=== PATIENT | female | born 1950 | race Caucasian/White ===

== ENCOUNTER 2020-11-27 10:09 | Day surgery (SDC) | payer MEDICARE, OTHER ==
[2020-11-26 08:22] VITALS: BMI 27.1
[~2020-11-27 10:09] MED LIST: ATROPINE OPHTH SOLN 1% 5ML BTL BOTH EYES PRN; LACTATED RINGERS 1,000 ML IV SCH; MOXIFLOXACIN HCL 0.5% DROPS 3 ML BTL OP PRN; TETRACAINE 0.5% OPHTH (PF) DROPS 4 ML BTL OP PRN; TIMOLOL 0.5% OPHTH DROPS 5 ML BTL OP PRN
[2020-11-27 11:24] VITALS: TEMP 98.8
[2020-11-27] MEDS: PHENYLEPHRINE 2.5% OPHTH DRP 2ML OP PRN ×3 (11:27→11:39)
[2020-11-27] MEDS: CYCLOPENTOLATE 1% OPHTH SOLN 2 ML BTL OP PRN ×3 (11:30→11:40)
[2020-11-27] MEDS ORDERED: MIDAZOLAM 2 MG/2 ML VIAL ONE (12:21)
[2020-11-27] MEDS ORDERED: fentaNYL (PF) 50 MCG/ML 2 ML AMP ONE (12:21)
[2020-11-27] MEDS ORDERED: HYALURONATE SODIUM INTRAOCULAR 1 EACH SYRINGE (12MG/ML) INTRAOCULA ONE (12:22)
[2020-11-27] MEDS ORDERED: LIDOCAINE 1% (PF) 10MG/ML VIAL SQ ONE (12:22)
[2020-11-27] MEDS ORDERED: BALANCED SALT IRRIG SOLN COMB2 15 ML IRRIG.SOLN INTRAOCULA ONE (12:22)
[2020-11-27] MEDS ORDERED: EPINEPHrine (PF) 0.3 ML in BALANCED SALT IRRIG SOLN COMB2 500 ML IRRIGATION ONE (12:34)
--- NOTE | 2020-11-27 12:47 | P.OP ---
Date of Procedure: 11/27/20 Preoperative Diagnosis: NS & CS & PSC Postoperative Diagnosis: same Procedure(s) Performed: PIOL, OS Implants: [id number] Anesthesia: MAC Surgeon: Dyllan Zhu Pathology: none sent Condition: stable Disposition: same day Indications for Procedure: blurry vision Operative Findings: no complications
[2020-11-27 13:06] VITALS: BP 123/79; PULSE 55; RESP 18
--- NOTE | 2020-11-27 23:31 | OP ---
OPERATIVE REPORT DATE OF SURGERY: 11/27/2020 PROCEDURE: Phacoemulsification of cataract and intraocular lens implant of the left eye. PREOPERATIVE DIAGNOSIS: Nuclear sclerosis, cortical sclerosis, posterior subcapsular cataract. POSTOPERATIVE DIAGNOSIS: Nuclear sclerosis, cortical sclerosis, posterior subcapsular cataract. ESTIMATED BLOOD LOSS: Zero. SPECIMEN TAKEN: None. NARRATIVE: After obtaining the appropriate consent, the patient was brought to the operating room, where the patient was placed under cardiac monitoring and prepped and draped in the usual sterile manner. At the 5 o'clock position a 15-degree super sharp blade was used to create a paracentesis followed by instillation of 1% Xylocaine MPF 50:50 mix with BSS into the anterior chamber. This was followed by Amvisc to stabilize the anterior chamber. At the 3 o'clock position a self-sealing corneal flap incision was created using 2.8 mm panfilo keratome. A cystotome was used to initiate a continuous tear capsulorrhexis which was completed with the Utrata forceps. A Binkhorst cannula was used to hydrodissect the lens nucleus followed by hydrodelineation. Phacoemulsification of the lens was performed utilizing phaco chop in 9.73 seconds at 11% power. The remaining cortical material was removed using the irrigation and aspiration mode followed by additional 1% Xylocaine MPF into the anterior chamber followed by Amvisc to stabilize the capsular bag. A Bausch [employer] Lomb MX 60E 23.0 diopters posterior chamber lens was placed into the capsular bag without difficulty. The remaining viscoelastic material was removed from the anterior chamber with the irrigation/aspiration. Balanced salt solution was used to normalize the intraocular pressure. The incision was checked for watertight integrity. The patient then received two drops of 0.5% Timolol followed by two drops Vigamox and was lightly patched and shielded in the usual manner. There were no complications from the procedure. The patient tolerated the procedure well and was returned to Recovery in good condition. MMODL / IJN: [id number] /
== END 2020-11-27 13:28 | disposition home or self-care (01) ==
LOC: OR 10:09
PROVIDERS: ATTEND Ophthalmology
DX: H25.12 Age-related nuclear cataract, left eye (principal); H25.012 Cortical age-related cataract, left eye; H25.042 Posterior subcapsular polar age-related cataract, left eye; H31.002 Unspecified chorioretinal scars, left eye; Z96.1 Presence of intraocular lens; Z87.891 Personal history of nicotine dependence; Z87.442 Personal history of urinary calculi; Z79.899 Other long term (current) drug therapy; Z91.030 Bee allergy status
CPT/HCPCS: 66984; C1780; J2250; J0171; J3010; J2001

== ENCOUNTER 2024-06-24 22:59 | Inpatient (IN) | payer MEDICARE, OTHER ==
[2024-06-24 23:40] LABS: Basophils # (A) 0.1 k/uL (0-0.2); Basophils % (A) 1 %; Eosinophils # (A) 0.5 k/uL (0-0.7); Eosinophils % (A) 4 %; HCT 45.3 % (34.0-46.0); HGB 15.3 gm/dL (11.4-16.0); Lymphocytes # (A) 1.4 k/uL (1.0-4.8); Lymphocytes % (A) 11 %; MCH 29.9 pg (25.0-35.0); MCHC 33.7 g/dL (31.0-37.0); Mean Platelet Volume 10.2; Monocytes # (A) 0.7 k/uL (0-1.0); Monocytes % (A) 6 %; Neutrophils # (A) 9.9 k/uL (1.3-7.7); Neutrophils % (A) 78 %; Platelet Count 280 k/uL (150-450); RBC 5.09 m/uL (3.80-5.40); RDW 13.3 % (11.5-15.5); WBC 12.7 k/uL (3.8-10.6)
--- NOTE | 2024-06-24 23:54 | ED ---
Abdominal Pain HPI - General Chief Complaint: Abdominal Pain Stated Complaint: Abdominal pain Source: patient Mode of arrival: ambulatory Limitations: no limitations - History of Present Illness Initial Comments: 74-year-old female presenting chief complaint of abdominal pain. Pain has been ongoing 06/21. She has a colicky pain in the lower abdomen. Patient has history of diverticulitis, she was placed on Augmentin by urgent care. It has been a few days and she does note improvement in her pain but no resolution. No nausea, vomiting, or diarrhea. No hematochezia or melena. No fevers or chills. No dysuria or hematuria. - Related Data Home Medications Medication Instructions Recorded Confirmed Cholecalciferol [Vitamin D3 (25 75 mcg PO DAILY 11/25/20 11/27/20 Mcg = 1000 Iu)] Allergies Allergy/AdvReac Type Severity Reaction Status Date / Time bee venom protein (honey bee) Allergy Rash/Hives Verified 11/27/20 11:24 Review of Systems ROS Statement: Those systems with pertinent positive or pertinent negative responses have been documented in the HPI. ROS Other: All systems not noted in ROS Statement are negative. Past Medical History Additional Past Medical History / Comment(s): left cataract,hx kidney stones History of Any Multi-Drug Resistant Organisms: None Reported Additional Past Surgical History / Comment(s): rt cataract,kidney removed Past Anesthesia/Blood Transfusion Reactions: No Reported Reaction Past Psychological History: No Psychological Hx Reported Smoking Status: Former smoker - Past Family History Mother Family Medical History: No Reported History Father Family Medical History: Prostate Disorder Additional Family Medical History / Comment(s): emphysema General Exam - General Exam Comments Initial Comments: Visual Physical Exam Vital signs reviewed General: Well-appearing, nontoxic, no acute distress. Head: Normocephalic, atraumatic Eyes: PERRLA, EOMI ENT: Airway patent Chest: Nonlabored breathing Skin: No visual rash, normal skin tone Neuro: Alert and oriented 3 Musculoskeletal: No gross abnormalities Limitations: no limitations General appearance: alert, in no apparent distress Head exam: Present: atraumatic, normocephalic Eye exam: Present: normal appearance, EOMI Neck exam: Present: normal inspection. Absent: meningismus Respiratory exam: Absent: respiratory distress Cardiovascular Exam: Present: regular rate GI/Abdominal exam: Present: soft, tenderness. Absent: distended, guarding, rebound, rigid Neurological exam: Present: alert, oriented X3 Psychiatric exam: Present: normal affect, normal mood Skin exam: Present: warm, dry Course Vital Signs 06/24/24 06/25/24 23:16 01:43 Temperature 98.0 F Pulse Rate 96 83 Respiratory 19 18 Rate Blood Pressure 156/92 140/86 O2 Sat by Pulse 98 99 Oximetry Medical Decision Making - Medical Decision Making Was pt. sent in by a medical professional or institution (, PA, MODEL MAKER, urgent care, hospital, or jail...) When possible be specific @ -No Did you speak to anyone other than the patient for history (EMS, parent, family, police, friend...)? What history was obtained from this source @ -No Did you review nursing and triage notes (agree or disagree)? Why? @ -I reviewed and agree with nursing and triage notes Were old charts reviewed (outside hosp., previous admission, EMS record, old EKG, old radiological studies, urgent care reports/EKG's, jail records)? Report findings @ -No old charts were reviewed Differential Diagnosis (chest pain, altered mental status, abdominal pain women, abdominal pain men, vaginal bleeding, weakness, fever, dyspnea, syncope, headache, dizziness, GI bleed, back pain, seizure, CVA, palpatations, mental health, musculoskeletal)? @ -MDM Differential Abdominal Pain Women: Appendicitis, Cholecystitis, diverticulosis, ischemic bowel, pancreatitis, hepatitis, UTI, gastroenteritis, AAA, incarcerated hernia, bowel obstruction, constipation, inflammatory bowel, hepatitis, peptic ulcer disease, splenic infarction, perforated viscus, vulvitis, ovarian torsion, PID, kidney stone, placenta abruption... This is not meant to be an all-inclusive list EKG interpreted by me (3pts min.). @ -As above X-rays interpreted by me (1pt min.). @ -KUB shows nonobstructive bowel gas pattern. CT interpreted by me (1pt min.). @ -CT shows distal descending and sigmoid diffuse diverticulosis coli. Abnormal wall thickening of the sigmoid, a 1.6 x 1.2 cm focal hypodensity and perisigmoid fat stranding/edematous ill-defined heterogenous soft tissue within the left hemipelvis, suggestive of acute/subacute diverticulitis with likely an early abscess formation. Recommend clinical correlation/follow-up. Diffusely mildly dilated pancreatic duct with questionably a prominent pancreatic uncinate process. The need for additional imaging/dedicated contrast pancreatic CT/MRI exam can be determined clinically. At L4-L5 level moderately advanced spondylitic changes seen U/S interpreted by me (1pt. min.). @ -None done What testing was considered but not performed or refused? (CT, X-rays, U/S, labs)? Why? @ -None What meds were considered but not given or refused? Why? @ -None Did you discuss the management of the patient with other professionals (professionals i.e. , PA, MODEL MAKER, lab, RT, psych nurse, home health care social worker, senior java engineer, teacher, complaint investigations officer, case coordinator)? Give summary @ -My attending spoke with the [facility] provider on-call who accepts admission Was smoking cessation discussed for >3mins.? @ -No Was critical care preformed (if so, how long)? @ -No Were there social determinants of health that impacted care today? How? (Homelessness, low income, unemployed, alcoholism, drug addiction, transportation, low edu. Level, literacy, decrease access to med. care, skilled nursing, rehab)? @ -No Was there de-escalation of care discussed even if they declined (Discuss DNR or withdrawal of care, Hospice)? DNR status @ -No What co-morbidities impacted this encounter? (DM, HTN, Smoking, COPD, CAD, Cancer, CVA, ARF, Chemo, Hep., AIDS, mental health diagnosis, sleep apnea, morbid obesity)? @ -None Was patient admitted / discharged? Hospital course, mention meds given and route, prescriptions, significant lab abnormalities, going to OR and other pertinent info. @ -74-year-old female with history of diverticulitis presenting with chief complaint of lower abdominal pain. Currently on Augmentin and pain has not res olved. History and physical examination are conducted. WBC 12.7. CT is positive for diverticulitis, with other miscellaneous findings. Patient is educated on today's findings. She will require admission, started on Zosyn after blood cultures are drawn. She is agreeable with this plan. I discussed this case with my attending Dr. Parsons Undiagnosed new problem with uncertain prognosis? @ -No Drug Therapy requiring intensive monitoring for toxicity (Heparin, Nitro, Insulin, Cardizem)? @ -No Were any procedures done? @ -No Diagnosis/symptom? @ -Diverticulitis with early abscess formation Acute, or Chronic, or Acute on Chronic? @ -Acute Uncomplicated (without systemic symptoms) or Complicated (systemic symptoms)? @ -Complicated Side effects of treatment? @ -No Exacerbation, Progression, or Severe Exacerbation? @ -No Poses a threat to life or bodily function? How? (Chest pain, USA, VT, pneumonia, PE, COPD, DKA, ARF, appy, cholecystitis, CVA, Diverticulitis, Homicidal, Suicida l, threat to staff... and all critical care pts) @ -Yes - Lab Data Result diagrams: 06/24/24 23:25 06/24/24 23:25 Lab Results 06/24/24 06/24/24 Range/Units 23:25 23:25 WBC 12.7 H (3.8-10.6) k/uL RBC 5.09 (3.80-5.40) m/uL Hgb 15.3 (11.4-16.0) gm/dL Hct 45.3 (34.0-46.0) % MCV 89.0 (80.0-100.0) fL MCH 29.9 (25.0-35.0) pg MCHC 33.7 (31.0-37.0) g/dL RDW 13.3 (11.5-15.5) % Plt Count 280 (150-450) k/uL MPV 10.2 Neutrophils % 78 % Lymphocytes % 11 % Monocytes % 6 % Eosinophils % 4 % Basophils % 1 % Neutrophils # 9.9 H (1.3-7.7) k/uL Lymphocytes # 1.4 (1.0-4.8) k/uL Monocytes # 0.7 (0-1.0) k/uL Eosinophils # 0.5 (0-0.7) k/uL Basophils # 0.1 (0-0.2) k/uL Sodium 139 (137-145) mmol/L Potassium 4.0 (3.5-5.1) mmol/L Chloride 108 H (98-107) mmol/L Carbon Dioxide 22 (22-30) mmol/L Anion Gap 9 mmol/L BUN 11 (7-17) mg/dL Creatinine 0.78 (0.52-1.04) mg/dL Est GFR (CKD-EPI)AfAm 87 (>60 ml/min/1.73 sqM) Est GFR (CKD-EPI)NonAf 75 (>60 ml/min/1.73 sqM) Glucose 118 H (74-99) mg/dL Calcium 9.7 (8.4-10.2) mg/dL Total Bilirubin 0.7 (0.2-1.3) mg/dL AST 20 (14-36) U/L ALT 14 (4-34) U/L Alkaline Phosphatase 103 (38-126) U/L Total Protein 7.1 (6.3-8.2) g/dL Albumin 4.0 (3.5-5.0) g/dL Amylase 50 (30-110) U/L Lipase 79 (23-300) U/L Disposition Clinical Impression: Diverticulitis Disposition: ADMITTED IP TO THIS [facility] Condition: Fair Time of Disposition: 02:46
[2024-06-24 23:55] LABS: ALT 14 U/L (4-34); AST 20 U/L (14-36); African American GFR (CKD) 87 (>60 ml/min/1.73 sqM); Alkaline Phosphatase 103 U/L (38-126); Amylase 50 U/L (30-110); Anion Gap 9 mmol/L; Blood Urea Nitrogen 11 mg/dL (7-17); Calcium 9.7 mg/dL (8.4-10.2); Carbon Dioxide 22 mmol/L (22-30); Chloride 108 mmol/L (98-107); Glucose 118 mg/dL (74-99); Lipase 79 U/L (23-300); Non-African American GFR(CKD) 75 (>60 ml/min/1.73 sqM); Sodium 139 mmol/L (137-145); Total Bilirubin 0.7 mg/dL (0.2-1.3); Total Protein 7.1 g/dL (6.3-8.2)
--- NOTE | 2024-06-25 00:45 | XR ---
EXAM: XR Abdomen, 1 View CLINICAL HISTORY: ITS.REASON XR Reason: abdominal pain TECHNIQUE: Frontal supine view of the abdomen/pelvis. COMPARISON: No relevant prior studies available. FINDINGS: Gastrointestinal tract: Nonobstructed bowel gas pattern. Bones/joints: Unremarkable. No acute fracture. IMPRESSION: Nonobstructed bowel gas pattern.
--- NOTE | 2024-06-25 02:04 | CT ---
EXAM: CT Abdomen and Pelvis With Intravenous Contrast CLINICAL HISTORY: ITS.REASON CT Reason: Abdominal pain TECHNIQUE: Axial computed tomography images of the abdomen and pelvis with intravenous contrast. CTDI is 16 mGy and DLP is 643.4 mGy-cm. This CT exam was performed using one or more of the following dose reduction techniques: automated exposure control, adjustment of the mA and/or kV according to patient size, and/or use of iterative reconstruction technique. COMPARISON: KUB: 06/25/2024. FINDINGS: Image quality degraded by motion artifact. Lung bases: No mass. No consolidation. A 10 mm calcified nodule/granuloma peripherally in the left lower lobe. Bilateral posteriorly mild atelectatic changes/interstitial thickening and a right subpleural emphysematous bleb. ABDOMEN: Liver: Mild/moderate diffuse steatosis. No mass. Gallbladder and bile ducts: Unremarkable. No calcified stones. No significant biliary ductal dilatation. Pancreas: Somewhat prominent pancreatic uncinate process (series 201 image 21). 3.2 mm diffuse mild pancreatic ductal dilatation. Spleen: Unremarkable. No splenomegaly. Adrenals: Unremarkable. No mass. Kidneys and ureters: Left renal small parapelvic cysts. No solid mass. No hydronephrosis. Stomach and bowel: Unremarkable stomach and small bowel. Distal descending and sigmoid diffuse diverticulosis coli. Abnormal wall thickening of the sigmoid, a 1.6 x 1.2 cm focal hypodensity and pericolonic fat stranding/edematous ill-defined heterogeneous soft tissue in the left hemipelvis, suggestive of acute/subacute diverticulitis with a likely an early abscess (series 201 image 60). PELVIS: Appendix: Normal appendix (series 201 image 44). Bladder: Unremarkable. No mass. Reproductive: An atrophic anteverted uterus with a 1.6 cm rounded calcified fibroid is seen at the superior bladder surface. ABDOMEN and PELVIS: Intraperitoneal space: No free air. No significant fluid collection. Bones/joints: Osteopenia. No acute fracture. No dislocation. At L4- L5 level moderately advanced degenerative disc/endplates spondylitic changes Soft tissues: Unremarkable. Vasculature: Calcified diffuse atherosclerosis/plaque formation of the aortoiliac vasculature and branch vessels. No abdominal aortic aneurysm. Lymph nodes: Nonspecific multiple small periaortic lymph nodes. No significant lymphadenopathy by CT size criteria.. IMPRESSION: Distal descending and sigmoid diffuse diverticulosis coli. Abnormal wall thickening of the sigmoid, a 1.6 x 1.2 cm focal hypodensity and perisigmoid fat stranding/edematous ill-defined heterogeneous soft tissues in the left hemipelvis, suggestive of acute/subacute diverticulitis with likely an early abscess formation. Recommend clinical correlation/follow-up. Diffusely mildly dilated pancreatic duct with questionably a prominent pancreatic uncinate process. The need for additional imaging/dedicated contrast pancreatic CT/MRI exam can be determined clinically. At L4-L5 level moderately advanced spondylitic changes seen. .
[2024-06-25] MEDS ORDERED: MORPHINE SULFATE 4 MG/ML SYRINGE IV PRN (02:44)
[2024-06-25] MEDS ORDERED: ONDANSETRON 4 MG/2 ML VIAL IVP PRN (02:44)
[2024-06-25] MEDS ORDERED: NALOXONE 0.4 MG/ML 1 ML VIAL IV PRN (02:44)
[2024-06-25] MEDS: PIPERACILLIN-TAZOBACTAM 3.375 GM in SODIUM CHLORIDE 0.9% 100 ML IVPB STA (03:34)
[2024-06-25] MEDS: SODIUM CHLORIDE 0.9% 1,000 ML IV SCH (03:36)
--- NOTE | 2024-06-25 06:41 | P.CON ---
Consult Note - . Consult date: 06/25/24 Assessment/Plan:: 74-year-old female presented to [facility] ED with chief complaint of abdominal pain. Patient has had this pain for about 5 days. She has a colicky pain in the lower abdomen. Patient has history of diverticulitis, she was placed on Augmentin by urgent care. It has been a few days and she does note improvement in her pain but no resolution. No nausea, vomiting, or diarrhea. No hematochezia or melena. No fevers or chills. No dysuria or hematuria. CT-AP was performed in the ER that shows diverticulitis with abscess formation. Review of Systems ROS Statement: Those systems with pertinent positive or pertinent negative responses have been documented in the HPI. ROS Other: All systems not noted in ROS Statement are negative. Past Medical History Additional Past Medical History / Comment(s): left cataract,hx kidney stones History of Any Multi-Drug Resistant Organisms: None Reported Additional Past Surgical History / Comment(s): rt cataract,kidney removed Past Anesthesia/Blood Transfusion Reactions: No Reported Reaction Past Psychological History: No Psychological Hx Reported Smoking Status: Former smoker - Past Family History Mother Family Medical History: No Reported History Father Family Medical History: Prostate Disorder Additional Family Medical History / Comment(s): emphysema Limitations: no limitations General appearance: alert, in no apparent distress Head exam: Present: atraumatic, normocephalic Eye exam: Present: normal appearance, EOMI Neck exam: Present: normal inspection. Absent: meningismus Respiratory exam: Absent: respiratory distress Cardiovascular Exam: Present: regular rate GI/Abdominal exam: Present: soft, tenderness. Absent: distended, guarding, rebound, rigid Neurological exam: Present: alert, oriented X3 Psychiatric exam: Present: normal affect, normal mood Skin exam: Present: warm, dry 74 year old female with recurrent diverticulitis with abscess -NPO -Zosyn -IV fluids -IR consult for drainage of abscess -Patient has had multiple episodes of diverticulitis and would benefit from colon resection. Plan pending clinical course would be conservative treatment with IR drainage and antibiotics with IR drainage. And Plan for colonoscopy in 4-6 weeks outpatient followed by elective colon resection -Further recs to follow Horacio Motta [facility] [phone]
--- NOTE | 2024-06-25 13:41 | P.HPIM ---
History of Present Illness H&P Date: 06/25/24 History of present illness; patient is a 74-year-old lady with past medical history significant for diverticulitis who presented to the ER because abdominal pain. Stated that she was all right 1 week back when he started noticing abdominal pain. Abdominal pain was intermittent, colicky, located in lower quadrant, no aggravating or relieving factor associated with this abdominal pain. There was no complaint nausea or vomiting. Denies any altered bowel movements and there was no complaint of blood in the stools. Patient visited urgent care and was placed on antibiotics for presumed diverticulitis. Patient abdominal pain persisted so she decided come to the ER. Initial lab work done in the ER showed WBC 12.7, hemoglobin 15.3, platelet count 280, sodium 139, potassium 4, BUN 11, creatinine 0.78, AST 20, ALT 14, alk phos 103 CT abdomen and pelvis done showed distal descending and sigmoid diffuse diverticulosis coli, abnormal wall thickening of the sigmoid a 1.6 x 1.2 cm focal hypodensity and perisigmoid fat stranding/edematous ill-defined heterogenous soft tissue in the left hemipelvis suggestive of acute/subacute diverticulitis like an early abscess formation acute sigmoid diverticulitis X-ray KUB done showed nonobstructive bowel gas pattern Patient admitted to internal medicine service REVIEW OF SYSTEMS: CONSTITUTIONAL: No fever, no malaise, no fatigue. HEENT: No recent visual problems or hearing problems. Denied any sore throat. CARDIOVASCULAR: No chest pain, orthopnea, PND, no palpitations, no syncope. PULMONARY: No shortness of breath, no cough, no hemoptysis. GASTROINTESTINAL: As mentioned above NEUROLOGICAL: No headaches, no weakness, no numbness. HEMATOLOGICAL: Denies any bleeding or petechiae. GENITOURINARY: Denies any burning micturition, frequency, or urgency. MUSCULOSKELETAL/RHEUMATOLOGICAL: Denies any joint pain, swelling, or any muscle pain. ENDOCRINE: Denies any polyuria or polydipsia. The rest of the 14-point review of systems is negative. PHYSICAL EXAMINATION: GENERAL: The patient is alert and oriented x3, not in any acute distress. Well developed, well nourished. HEENT: Pupils are round and equally reacting to light. EOMI. No scleral icterus. No conjunctival pallor. Normocephalic, atraumatic. No pharyngeal erythema. No thyromegaly. CARDIOVASCULAR: S1 and S2 present. No murmurs, rubs, or gallops. PULMONARY: Chest is clear to auscultation, no wheezing or crackles. ABDOMEN: Soft, tenderness left lower quadrant, nondistended, normoactive bowel sounds. No palpable organomegaly. MUSCULOSKELETAL: No joint swelling or deformity. EXTREMITIES: No cyanosis, clubbing, or pedal edema. NEUROLOGICAL: Gross neurological examination did not reveal any focal deficits. SKIN: No rashes. Assessment and plan Acute diverticulitis Monitor vital signs Monitor CBC Monitor CMP Continue telemetry monitoring Continue antiemetics Continue pain management Start IV Zosyn Start IV Protonix Surgery consulted ID consulted Labs and medication were reviewed.. Continue same treatment. Continue with symptomatic treatment. Resume home medication. Monitor labs and vitals. DVT and GI prophylaxis. Further recommendations as per clinical course of the patient Dictation was produced using [employer] dictation software. please excuse any grammatical, word or spelling errors. Past Medical History Additional Past Medical History / Comment(s): left cataract,hx kidney stones History of Any Multi-Drug Resistant Organisms: None Reported Additional Past Surgical History / Comment(s): rt cataract,kidney removed Past Anesthesia/Blood Transfusion Reactions: No Reported Reaction Past Psychological History: No Psychological Hx Reported Smoking Status: Former smoker - Past Family History Mother Family Medical History: No Reported History Father Family Medical History: Prostate Disorder Additional Family Medical History / Comment(s): emphysema Medications and Allergies Home Medications Medication Instructions Recorded Confirmed Type Amoxic-Pot Clav 875-125Mg 1 tab PO Q12HR 06/25/24 06/25/24 History [Augmentin 875-125] Allergies Allergy/AdvReac Type Severity Reaction Status Date / Time bee venom protein (honey bee) Allergy Rash/Hives Verified 06/25/24 10:22 Physical Exam Vitals: Vital Signs Temp Pulse Resp BP Pulse Ox 06/25/24 09:18 98.0 F 79 18 132/82 95 06/25/24 08:26 16 06/25/24 07:01 66 18 140/76 97 06/25/24 01:43 83 18 140/86 99 06/24/24 23:16 98.0 F 96 19 156/92 98 Intake and Output 06/24/24 06/25/2406/25/24 22:59 06:59 14:59 Other: Weight 64.864 kg Results CBC & Chem 7: 06/24/24 23:25 06/24/24 23:25 Labs: Abnormal Lab Results - Last 24 Hours (Table) 06/24/24 06/24/24 Range/Units 23:25 23:25 WBC 12.7 H (3.8-10.6) k/uL Neutrophils # 9.9 H (1.3-7.7) k/uL Chloride 108 H (98-107) mmol/L Glucose 118 H (74-99) mg/dL
[2024-06-25] MEDS: PIPERACILLIN-TAZOBACTAM 3.375 GM in SODIUM CHLORIDE 0.9% 100 ML IVPB SCH (15:59)
--- NOTE | 2024-06-25 22:31 | P.CONS ---
History of Present Illness - Reason for Consult Consult date: 06/25/24 Acute diverticulitis Requesting physician: Niall Hussein - Chief Complaint Abdominal pain X few days - History of Present Illness Patient is a 74-year-old female with a past medical history significant for diverticulosis kidney stone former smoker presenting to the [facility] with abdominal pain patient symptom has been going on since June 21, 2024, apparently the patient has been evaluated in the urgent care and has been treated with oral Augmentin patient mention her abdominal pain has decreased in intensity but not completely gone with the symptoms continue to linger on patient presented to the hospital for further evaluation patient denies having any fever or any chills has been complaining of lower abdominal pain that is mostly colicky moderate intensity without any radiation with associated nausea but no vomiting denies having any diarrhea constipation or hematochezia no urinary symptoms no high-grade fever on presentation to the hospital patient was afebrile patient was not tachycardic hypotensive or hypoxic she did have white count of 12.7 with a left shift creatinine 0.78 electrolytes are normal liver enzymes normal patient did have a CT of abdominal pelvis that is suggestive of descending and sigmoid diverticulosis thickening of the sigmoid with focal hypodensity suspicious for possible peridiverticular abscess patient was started on Zosyn infectious disease was consulted for further management of antibiotic therapy Review of Systems Positive point and negatives has been mentioned in the HPI, complete review of systems was performed and all other systems are negative Past Medical History Additional Past Medical History / Comment(s): left cataract,hx kidney stones History of Any Multi-Drug Resistant Organisms: None Reported Additional Past Surgical History / Comment(s): rt cataract,kidney removed Past Anesthesia/Blood Transfusion Reactions: No Reported Reaction Past Psychological History: No Psychological Hx Reported Smoking Status: Former smoker - Past Family History Mother Family Medical History: No Reported History Father Family Medical History: Prostate Disorder Additional Family Medical History / Comment(s): emphysema Medications and Allergies Home Medications Medication Instructions Recorded Confirmed Type Amoxic-Pot Clav 875-125Mg 1 tab PO Q12HR 06/25/24 06/25/24 History [Augmentin 875-125] Allergies Allergy/AdvReac Type Severity Reaction Status Date / Time bee venom protein (honey bee) Allergy Rash/Hives Verified 06/25/24 10:22 Physical Exam Vitals: Vital Signs Temp Pulse Resp BP Pulse Ox 06/25/24 09:18 98.0 F 79 18 132/82 95 06/25/24 08:26 16 06/25/24 07:01 66 18 140/76 97 06/25/24 01:43 83 18 140/86 99 06/24/24 23:16 98.0 F 96 19 156/92 98 Intake and Output 06/24/24 06/25/24 06/25/24 22:59 06:59 14:59 Other: Weight 64.864 kg GENERAL DESCRIPTION: Elderly female lying in bed, no distress. No tachypnea or accessory muscle of respiration use. HEENT: Shows Pallor , no scleral icterus. Oral mucous membrane is dry. No pharyngeal erythema or thrush NECK: Trachea central, no thyromegaly. LUNGS: Unlabored breathing. Clear to auscultation anteriorly. No wheeze or cr ackle. HEART: S1, S2, regular rate and rhythm. No loud murmur ABDOMEN: Soft, mild tenderness , guarding or rigidity, no organomegaly EXTREMITIES: No edema of feet. SKIN: No rash, no masses palpable. NEUROLOGICAL: The patient is awake, alert, oriented x3, mood and affect normal. Results CBC & Chem 7: 06/27/24 02:23 06/27/24 02:23 Labs: Abnormal Lab Results - Last 24 Hours (Table) 06/24/24 06/24/24 Range/Units 23:25 23:25 WBC 12.7 H (3.8-10.6) k/uL Neutrophils # 9.9 H (1.3-7.7) k/uL Chloride 108 H (98-107) mmol/L Glucose 118 H (74-99) mg/dL Assessment and Plan (1) Diverticulitis of colon with perforation Current Visit: Yes Status: Acute Code(s): K57.20 - DVTRCLI OF LG INT W PE RFORATION AND ABSCESS W/O BLEEDING SNOMED Code(s): 05159875 (2) Intra-abdominal abscess Current Visit: Yes Status: Acute Code(s): K65.1 - PERITONEAL ABSCESS SNOM ED Code(s): 09056975 Plan: 1patient presented to hospital with abdominal pain nausea and this patient has been diagnosed with complicated diverticulitis with peridiverticular abscess failing outpatient oral Augmentin therapy 2-await IR for possible drainage of this abscess fluid should be sent for culture 3-Zosyn 3.375 g every 8 hours should provide adequate empiric antibiotic coverage Question concern answered We will follow on clinical condition and cultures to further adjust medication if needed Thank you for this consultation we will follow the patient along with you Dictation was produced using [employer] dictation software. please excuse any gram matical, word or spelling errors. Time with Patient: Greater than 30
[2024-06-26] MEDS: PANTOPRAZOLE 40 MG/10 ML VIAL IVP SCH (09:29)
--- NOTE | 2024-06-26 13:24 | P.PN ---
Progress Note - Text Progress Note Date: 06/26/24 MARIELA. Abdominal Pain is improved. Denies nausea and vomiting. Denies fevers General appearance: alert, in no apparent distress Head exam: Present: atraumatic, normocephalic Eye exam: Present: normal appearance, EOMI Neck exam: Present: normal inspection. Absent: meningismus Respiratory exam: Absent: respiratory distress Cardiovascular Exam: Present: regular rate GI/Abdominal exam: Present: soft, tenderness. Absent: distended, guarding, rebound, rigid Neurological exam: Present: alert, oriented X3 Psychiatric exam: Present: normal affect, normal mood Skin exam: Present: warm, dry 74 year old female with recurrent diverticulitis with abscess -CLD started -Zosyn -IV fluids -IR consulted for drainage of abscess. Per ID, unable to drain abscess -ID recs -Patient has had multiple episodes of diverticulitis and would benefit from colon resection. Plan pending clinical course would be conservative treatment with antibiotics. And Plan for colonoscopy in 4-6 weeks outpatient followed by elective colon resection -Further recs to follow Horacio Motta DO [facility] [phone]
[2024-06-26] MEDS ORDERED: ACETAMINOPHEN TAB 325 MG TAB PO PRN (14:23)
--- NOTE | 2024-06-26 14:25 | P.PN ---
Subjective Progress Note Date: 06/26/24 History of present illness; patient is a 74-year-old lady with past medical history significant for diverticulitis who presented to the ER because abdominal pain. Stated that she was all right 1 week back when he started noticing abdominal pain. Abdominal pain was intermittent, colicky, located in lower quadrant, no aggravating or relieving factor associated with this abdominal pain. There was no complaint nausea or vomiting. Denies any altered bowel movements and there was no complaint of blood in the stools. Patient visited urgent care and was placed on antibiotics for presumed diverticulitis. Patient abdominal pain persisted so she decided come to the ER. Initial lab work done in the ER showed WBC 12.7, hemoglobin 15.3, platelet count 280, sodium 139, potassium 4, BUN 11, creatinine 0.78, AST 20, ALT 14, alk phos 103 CT abdomen and pelvis done showed distal descending and sigmoid diffuse diverticulosis coli, abnormal wall thickening of the sigmoid a 1.6 x 1.2 cm focal hypodensity and perisigmoid fat stranding/edematous ill-defined heterogenous soft tissue in the left hemipelvis suggestive of acute/subacute diverticulitis like an early abscess formation acute sigmoid diverticulitis X-ray KUB done showed nonobstructive bowel gas pattern Patient admitted to internal medicine service 06/26/2024 Patient is evaluated in follow-up on the medical floor. Patient is reporting minimal to no abdominal discomfort at this time she has been up ambulating without difficulty. Patient was evaluated by interventional radiology and with no plans to place a drainage catheter for this abscess. Patient will continue on conservative management for now remains on IV Zosyn infectious disease and general surgery following for further recommendations. Started on clear liquid diet. REVIEW OF SYSTEMS: CONSTITUTIONAL: No fever, no malaise, no fatigue. HEENT: No recent visual problems or hearing problems. Denied any sore throat. CARDIOVASCULAR: No chest pain, orthopnea, PND, no palpitations, no syncope. PULMONARY: No shortness of breath, no cough, no hemoptysis. GASTROINTESTINAL: As mentioned above NEUROLOGICAL: No headaches, no weakness, no numbness. HEMATOLOGICAL: Denies any bleeding or petechiae. PHYSICAL EXAMINATION: GENERAL: The patient is alert and oriented x3, not in any acute distress. Well developed, well nourished. HEENT: Pupils are round and equally reacting to light. EOMI. No scleral icterus. No conjunctival pallor. Normocephalic, atraumatic. No pharyngeal erythema. No thyromegaly. CARDIOVASCULAR: S1 and S2 present. No murmurs, rubs, or gallops. PULMONARY: Chest is clear to auscultation, no wheezing or crackles. ABDOMEN: Soft, tenderness left lower quadrant, nondistended, normoactive bowel sounds. No palpable organomegaly. MUSCULOSKELETAL: No joint swelling or deformity. EXTREMITIES: No cyanosis, clubbing, or pedal edema. NEUROLOGICAL: Gross neurological examination did not reveal any focal deficits. SKIN: No rashes. Assessment and plan Acute diverticulitis abscess continue with conservative management History of kidney stones History of cataract surgery Former smoker Leukocytosis secondary to the diverticulitis GI prophylaxis DVT prophylaxis Full code Plan Repeat blood work in the AM, CBC/BMP Continue telemetry monitoring Continue antiemetics Continue pain management Continue IV zosyn Surgery consulted continue with conservative management and likely outpatient follow up for colonoscopy and bowel resection ID consulted Dictation was produced using [employer]ish dictation software. please excuse any grammatical, word or spelling errors. The impression and plan of care has been dictated by Kelsy Hoyt, Nurse Practitioner as directed. Dr. Cyndi MD I have performed a history and physical examination and medical decision making of this patient, discussed the same with the dictator, and agree with the dictators assessment and plan as written, documented as a scribe. Based on total visit time, I have performed more than 50% of this visit. Objective - Vital Signs Vital signs: Vital Signs Temp 98.7 F 06/26/24 07:14 Pulse 86 06/26/24 07:14 Resp 16 06/26/24 07:14 BP 122/76 06/26/24 07:14 Pulse Ox 95 06/26/24 07:14 FiO2 Intake & Output 06/25/24 06/26/24 06/26/24 18:59 06:59 18:59 Output Total 1 Balance -1 Weight 64.864 kg Output: Urine 1 Other: # Voids 1 1 # Bowel Movements 1 - Labs CBC & Chem 7: 06/24/24 23:25 06/24/24 23:25 Labs: Microbiology - Last 24 Hours (Table) 06/25/24 03:15 Blood Culture - Preliminary Blood Assessment and Plan Time with Patient: Less than 30
[2024-06-26] MEDS: HEPARIN SODIUM,PORCINE 5,000 UNIT/ML 1 ML VIAL SQ SCH (19:50)
[2024-06-27] MEDS: KETOROLAC 15 MG/ML 1 ML VIAL IVP PRN (03:30)
[2024-06-27 08:26] LABS: Basophils # (A) 0.08 X 10*3/uL (0.00-0.10); Basophils % (A) 0.9 %; Eosinophils # (A) 0.21 X 10*3/uL (0.04-0.35); Eosinophils % (A) 2.3 %; HCT 36.5 % (37.2-46.3); Lymphocytes # (A) 1.13 X 10*3/uL (0.90-5.00); Lymphocytes % (A) 12.4 %; MCH 29.1 pg (27.0-32.0); MCHC 32.9 g/dL (32.0-37.0); MCV 88.6 FL (80.0-97.0); Mean Platelet Volume 12.2 FL (9.5-12.2); Monocytes # (A) 0.82 X 10*3/uL (0.20-1.00); NRBC Per 100 WBC 0 X 10*3/uL (0.00-0.01); Neutrophils # (A) 6.84 X 10*3/uL (1.80-7.70); Neutrophils % (A) 75.3 %; Platelet Count 260 X 10*3/uL (140-440); RBC 4.12 X 10*6/uL (4.10-5.20); RDW 13.3 % (11.5-14.5); WBC 9.09 X 10*3/uL (4.50-10.00)
[2024-06-27 08:35] LABS: Blood Urea Nitrogen 9.1 mg/dL (9.0-27.0); Calcium 8.6 mg/dL (8.7-10.3); Carbon Dioxide 19.8 mmol/L (21.6-31.8); Chloride 108 mmol/L (96-109); Glucose 94 mg/dL (70-110); Potassium 3.8 mmol/L (3.5-5.5); Sodium 140 mmol/L (135-145)
--- NOTE | 2024-06-27 13:08 | P.PN ---
Subjective Progress Note Date: 06/26/24 Principal diagnosis: Reason for follow-up is diverticulitis with abscess Patient is a 74-year-old female with a past medical history significant for diverticulosis kidney stone former smoker presenting to the hospital with abdominal pain patient symptom has been going on since June 21, 2024, failing outpatient oral Augmentin therapy presented to the hospital willingly being seen abdominal pelvis suggestive of diverticulitis with peridiverticular abscess which could not be drained CT-guided. On today's evaluation that is 06/26/2024, Patient is afebrile patient is currently on room air and denies having any shortness of breath, the patient denies any chest pain or cough, the patient denies any nausea vomiting abdominal pain has decreased intensity did have some loose stool. No labs were drawn today Objective - Vital Signs Vital signs: Vital Signs Temp 98.7 F 06/26/24 07:14 Pulse 86 06/26/24 07:14 Resp 16 06/26/24 07:14 BP 122/76 06/26/24 07:14 Pulse Ox 95 06/26/24 07:14 FiO2 Intake & Output 06/25/24 06/26/24 06/26/24 18:59 06:59 18:59 Output Total 1 Balance -1 Weight 64.864 kg Output: Urine 1 Other: # Voids 1 1 # Bowel Movements 1 - Exam GENERAL DESCRIPTION: An elderly female up in the chair in no distress RESPIRATORY SYSTEM: Unlabored breathing , decreased breath sounds at bases HEART: S1 S2 regular rate and rhythm , ABDOMEN: Soft , no tenderness EXTREMITIES: No edema feet - Labs CBC & Chem 7: 06/27/24 02:23 06/27/24 02:23 Assessment and Plan (1) Diverticulitis of colon with perforation Current Visit: Yes Status: Acute Code(s): K57.20 - DVTRCLI OF LG INT W PERFORATION AND ABSCESS W/O BLEEDING SNOMED Code(s): 65927433 (2) Intra-abdominal abscess Current Visit: Yes Status: Acute Code(s): K65.1 - PERITONEAL ABSCESS SNOMED Code(s): 71275560 Plan: 1patient presented to hospital with abdominal pain nausea and this patient has been diagnosed with complicated diverticulitis with peridiverticular abscess failing outpatient oral Augmentin therapy 2-abscess too small to be drained by IR as reported by PACKAGE D[employer] STAND LOADER for admitting team 3-patient to continue with Zosyn 3.375 g every 8 hours will benefit from short course of IV antibiotic on discharge Dictation was produced using [employer] dictation software. please excuse any grammatical, word or spelling errors. Time with Patient: Less than 30
--- NOTE | 2024-06-27 13:09 | P.PN ---
Subjective Progress Note Date: 06/27/24 Principal diagnosis: Reason for follow-up is diverticulitis with abscess Patient is a 74-year-old female with a past medical history significant for diverticulosis kidney stone former smoker presenting to the hospital with abdominal pain patient symptom has been going on since June 21, 2024, failing outpatient oral Augmentin therapy presented to the hospital willingly being seen abdominal pelvis suggestive of diverticulitis with peridiverticular abscess which could not be drained CT-guided. On today's evaluation that is 06/27/2024, patient has been afebrile, patient is breathing comfortably and is currently on room air, patient denies having any significant cough no chest pain shortness of breath, patient denies nausea vomiting did have some diarrhea and abdominal pain has decreased in intensity. Patient white count is 9.09, creatinine 0.7 Objective - Vital Signs Vital signs: Vital Signs Temp 97.8 F 06/27/24 07:30 Pulse 87 06/27/24 07:30 Resp 18 06/27/24 07:30 BP 149/87 06/27/24 07:30 Pulse Ox 97 06/27/24 07:30 FiO2 Intake & Output 06/26/24 06/27/24 06/27/24 18:59 06:59 18:59 Other: # Voids 3 - Exam GENERAL DESCRIPTION: An elderly female up in the chair in no distress RESPIRATORY SYSTEM: Unlabored breathing , decreased breath sounds at bases HEART: S1 S2 regular rate and rhythm , ABDOMEN: Soft , no tenderness EXTREMITIES: No edema feet - Labs CBC & Chem 7: 06/27/24 02:23 06/27/24 02:23 Labs: Abnormal Lab Results - Last 24 Hours (Table) 06/27/24 06/27/24 Range/Units 02:23 02:23 Hct 36.5 L (37.2-46.3) % Carbon Dioxide 19.8 L (21.6-31.8) mmol/L Anion Gap 12.20 H (4.00-12.00) mmol/L Calcium 8.6 L (8.7-10.3) mg/dL Microbiology - Last 24 Hours (Table) 06/25/24 03:15 Blood Culture - Preliminary Blood Assessment and Plan (1) Diverticulitis of colon with perforation Current Visit: Yes Status: Acute Code(s): K57.20 - DVTRCLI OF LG INT W PE RFORATION AND ABSCESS W/O BLEEDING SNOMED Code(s): 39895291 (2) Intra-abdominal abscess Current Visit: Yes Status: Acute Code(s): K65.1 - PERITONEAL ABSCESS SNOM ED Code(s): 97594012 Plan: 1patient presented to hospital with abdominal pain nausea and this patient has been diagnosed with complicated diverticulitis with peridiverticular abscess failing outpatient oral Augmentin therapy 2-abscess too small to be drained by IR as reported by MA[employer]GER [employer] for admitting team 3-patient white count has normalized, patient will benefit from a short course of IV Zosyn on discharge discussed with case maker to arrange for it for now continue with Zosyn Dictation was produced using [employer] dictation software. please excuse any gr ammatical, word or spelling errors. Time with Patient: Less than 30
--- NOTE | 2024-06-27 15:18 | P.PN ---
Subjective Progress Note Date: 06/27/24 History of present illness; patient is a 74-year-old lady with past medical history significant for diverticulitis who presented to the ER because abdominal pain. Stated that she was all right 1 week back when he started noticing abdominal pain. Abdominal pain was intermittent, colicky, located in lower quadrant, no aggravating or relieving factor associated with this abdominal pain. There was no complaint nausea or vomiting. Denies any altered bowel movements and there was no complaint of blood in the stools. Patient visited urgent care and was placed on antibiotics for presumed diverticulitis. Patient abdominal pain persisted so she decided come to the ER. Initial lab work done in the ER showed WBC 12.7, hemoglobin 15.3, platelet count 280, sodium 139, potassium 4, BUN 11, creatinine 0.78, AST 20, ALT 14, alk phos 103 CT abdomen and pelvis done showed distal descending and sigmoid diffuse diverticulosis coli, abnormal wall thickening of the sigmoid a 1.6 x 1.2 cm focal hypodensity and perisigmoid fat stranding/edematous ill-defined heterogenous soft tissue in the left hemipelvis suggestive of acute/subacute diverticulitis like an early abscess formation acute sigmoid diverticulitis X-ray KUB done showed nonobstructive bowel gas pattern Patient admitted to internal medicine service 06/26/2024 Patient is evaluated in follow-up on the medical floor. Patient is reporting minimal to no abdominal discomfort at this time she has been up ambulating without difficulty. Patient was evaluated by interventional radiology and with no plans to place a drainage catheter for this abscess. Patient will continue on conservative management for now remains on IV Zosyn infectious disease and general surgery following for further recommendations. Started on clear liquid diet. 03/27/2024 Patient has been up ambulating and at this time reporting no abdominal pain. As this is her 3rd time with diverticulitis this year, ID recommending course of IV antibiotics on discharge and PICC Line will be placed. Also concern for intraabdominal abscess. White blood cell count normal at 9.09. REVIEW OF SYSTEMS: CONSTITUTIONAL: No fever, no malaise, no fatigue. HEENT: No recent visual problems or hearing problems. Denied any sore throat. CARDIOVASCULAR: No chest pain, orthopnea, PND, no palpitations, no syncope. PULMONARY: No shortness of breath, no cough, no hemoptysis. GASTROINTESTINAL: As mentioned above NEUROLOGICAL: No headaches, no weakness, no numbness. HEMATOLOGICAL: Denies any bleeding or petechiae. PHYSICAL EXAMINATION: GENERAL: The patient is alert and oriented x3, not in any acute distress. Well developed, well nourished. HEENT: Pupils are round and equally reacting to light. EOMI. No scleral icterus. No conjunctival pallor. Normocephalic, atraumatic. No pharyngeal erythema. No thyromegaly. CARDIOVASCULAR: S1 and S2 present. No murmurs, rubs, or gallops. PULMONARY: Chest is clear to auscultation, no wheezing or crackles. ABDOMEN: Soft, tenderness left lower quadrant, nondistended, normoactive bowel sounds. No palpable organomegaly. MUSCULOSKELETAL: No joint swelling or deformity. EXTREMITIES: No cyanosis, clubbing, or pedal edema. NEUROLOGICAL: Gross neurological examination did not reveal any focal deficits. SKIN: No rashes. Assessment and plan Acute diverticulitis abscess continue with conservative management History of kidney stones History of cataract surgery Former smoker Leukocytosis secondary to the diverticulitis GI prophylaxis DVT prophylaxis Full code Plan Repeat blood work in the AM, CBC/BMP Continue telemetry monitoring Continue antiemetics Continue pain management Continue IV zosyn, ID recommending outpatient antibiotics and PICC Line has been ordered. Surgery consulted continue with conservative management and likely outpatient follow up for colonoscopy and bowel resection ID consulted Dictation was produced using [employer] dictation software. please excuse any grammatical, word or spelling errors. The impression and plan of care has been dictated by Kelsy Hoyt, Nurse Practitioner as directed. Dr. Cyndi MD I have performed a history and physical examination and medical decision making of this patient, discussed the same with the dictator, and agree with the dictators assessment and plan as written, documented as a scribe. Based on total visit time, I have performed more than 50% of this visit. Objective - Vital Signs Vital signs: Vital Signs Temp 97.8 F 06/27/24 07:30 Pulse 87 06/27/24 07:30 Resp 18 06/27/24 07:30 BP 149/87 06/27/24 07:30 Pulse Ox 97 06/27/24 07:30 FiO2 Intake & Output 06/26/24 06/27/24 06/27/24 18:59 06:59 18:59 Other: # Voids 3 - Labs CBC & Chem 7: 06/27/24 02:23 06/27/24 02:23 Labs: Abnormal Lab Results - Last 24 Hours (Table) 06/27/24 06/27/24 Range/Units 02:23 02:23 Hct 36.5 L (37.2-46.3) % Carbon Dioxide 19.8 L (21.6-31.8) mmol/L Anion Gap 12.20 H (4.00-12.00) mmol/L Calcium 8.6 L (8.7-10.3) mg/dL Microbiology - Last 24 Hours (Table) 06/25/24 03:15 Blood Culture - Preliminary Blood Assessment and Plan Time with Patient: Less than 30
--- NOTE | 2024-06-27 15:29 | P.PN ---
Subjective Progress Note Date: 06/27/24 Patient seen and examined at bedside. She feels much better. Denies pain at all. Having bowel function. Objective - Vital Signs Vital signs: Vital Signs Temp 97.6 F 06/27/24 13:35 Pulse 72 06/27/24 13:35 Resp 16 06/27/24 13:35 BP 146/77 06/27/24 13:35 Pulse Ox 97 06/27/24 13:35 FiO2 Intake & Output 06/26/24 06/27/24 06/27/24 18:59 06:59 18:59 Other: # Voids 3 - Constitutional General appearance: Present: cooperative, no acute distress - Respiratory Details: No difficulty with respiration - Gastrointestinal Gastrointestinal Comment(s): Soft, nontender, nondistended, no rebound, no guarding - Psychiatric Psychiatric: Present: A&O x's 3 - Labs CBC & Chem 7: 06/27/24 02:23 06/27/24 02:23 Labs: Abnormal Lab Results - Last 24 Hours (Table) 06/27/24 06/27/24 Range/Units 02:23 02:23 Hct 36.5 L (37.2-46.3) % Carbon Dioxide 19.8 L (21.6-31.8) mmol/L Anion Gap 12.20 H (4.00-12.00) mmol/L Calcium 8.6 L (8.7-10.3) mg/dL Microbiology - Last 24 Hours (Table) 06/25/24 03:15 Blood Culture - Preliminary Blood Assessment and Plan Plan: 74-year-old female with acute diverticulitis with abscess formation. IR unable to drain this abscess. Case discussed with infectious disease. With patient's significant symptom improvement, plan is for PICC line placement with IV antibiotics as an outpatient. She is to have outpatient colonoscopy and follow- up with surgery team for discussion on possible sigmoid colectomy. Will advance diet.
[2024-06-28 07:57] VITALS: BP 163/82; PULSE 87; RESP 16; TEMP 97.8
--- NOTE | 2024-06-28 08:46 | P.PN ---
Subjective Progress Note Date: 06/28/24 Patient seen and examined at bedside. Ambulating in the hallways. Denies abdominal pain. Tolerating diet. Objective - Vital Signs Vital signs: Vital Signs Temp 97.8 F 06/28/24 07:56 Pulse 87 06/28/24 07:56 Resp 16 06/28/24 07:56 BP 163/82 06/28/24 07:56 Pulse Ox 97 06/28/24 07:56 FiO2 Intake & Output 06/27/24 06/28/24 06/28/24 18:59 06:59 18:59 Intake Total 118 Balance 118 Intake: Oral 118 Other: # Voids 4 - Constitutional General appearance: Present: cooperative - Respiratory Details: No difficulty with respiration - Gastrointestinal Gastrointestinal Comment(s): Soft, nontender, nondistended, no rebound, no guarding - Psychiatric Psychiatric: Present: A&O x's 3 - Labs CBC & Chem 7: 06/27/24 02:23 06/27/24 02:23 Labs: Microbiology - Last 24 Hours (Table) 06/25/24 03:15 Blood Culture - Preliminary Blood Assessment and Plan Plan: 74-year-old female with acute diverticulitis complicated with small abscess formation. IR unable to drain abscess. PICC line being placed today for IV antibiotics and IV antibiotic therapy as an outpatient. Patient has some anxiety about PICC line being placed and this was discussed in depth with the patient with all questions answered. Continue recommendations per infectious disease. Continue diet as patient is tolerating it.
--- NOTE | 2024-06-28 12:36 | P.PN ---
Subjective Progress Note Date: 06/28/24 Principal diagnosis: Reason for follow-up is diverticulitis with abscess Patient is a 74-year-old female with a past medical history significant for diverticulosis kidney stone former smoker presenting to the hospital with abdominal pain patient symptom has been going on since June 21, 2024, failing outpatient oral Augmentin therapy presented to the hospital willingly being seen abdominal pelvis suggestive of diverticulitis with peridiverticular abscess which could not be drained CT-guided. On today's evaluation that is 06/28/2024, Patient is afebrile this morning patient denies having any chest pain shortness of breath or cough, the patient is breathing comfortably and currently on room air, patient denies any abdominal pain no nausea no vomiting did have small loose stool. No new lab has been obtained today blood culture has been pending Objective - Vital Signs Vital signs: Vital Signs Temp 97.8 F 06/28/24 07:56 Pulse 87 06/28/24 07:56 Resp 16 06/28/24 08:00 BP 163/82 06/28/24 07:56 Pulse Ox 97 06/28/24 07:56 FiO2 Intake & Output 06/27/24 06/28/24 06/28/24 18:59 06:59 18:59 Intake Total 118 Balance 118 Intake: Oral 118 Other: Voiding Method Toilet # Voids 4 - Exam GENERAL DESCRIPTION: An elderly female up in the chair in no distress RESPIRATORY SYSTEM: Unlabored breathing , decreased breath sounds at bases HEART: S1 S2 regular rate and rhythm , ABDOMEN: Soft , no tenderness EXTREMITIES: No edema feet - Labs CBC & Chem 7: 06/27/24 02:23 06/27/24 02:23 Labs: Microbiology - Last 24 Hours (Table) 06/25/24 03:15 Blood Culture - Preliminary Blood Assessment and Plan (1) Diverticulitis of colon with perforation Current Visit: Yes Status: Acute Code(s): K57.20 - DVTRCLI OF LG INT W PERFORATION AND ABSCESS W/O BLEEDING SNOMED Code(s): 62646580 (2) Intra-abdominal abscess Current Visit: Yes Status: Acute Code(s): K65.1 - PERITONEAL ABSCESS SNOMED Code(s): 49049022 Plan: 1patient presented to hospital with abdominal pain nausea and this patient has been diagnosed with complicated diverticulitis with peridiverticular abscess failing outpatient oral Augmentin therapy 2-abscess too small to be drained by IR as reported by SCHOOL AIDE for admitting team 3-patient white count has normalized, and did have some clinical improvement 4patient has opted to go to outpatient infusion clinic because of the cost of antibiotics at home we will switch over to Invanz 1 g daily and continued outpatient setting for 2 weeks with a plan for another CAT scan before completion of antibiotics prescription was provided to the nursing staff Dictation was produced using [employer] dictation software. please excuse any grammatical, word or spelling errors. Time with Patient: Less than 30
[2024-06-28] MEDS: ERTAPENEM 1 GM in SODIUM CHLORIDE 0.9% 50 ML IVPB STA (13:33)
--- NOTE | 2024-06-28 17:29 | P.DS ---
Providers Date of admission: 06/25/24 02:44 Expected date of discharge: 06/28/24 Attending physician: Moustapha Saleem Consults: 06/25/24 02:44 Consult Physician Urgent Consulting Provider: Horacio Motta Consult Reason/Comments: Diverticulitis with early abscess formation Do you want consulting provider notified?: Yes, Notify in am 06/25/24 10:08 Consult Physician Routine Consulting Provider: Luis Sanford Consult Reason/Comments: Acute diverticulitis Do you want consulting provider notified?: Yes Primary care physician: Gauri Stern Jarret [facility] Hospital Course: History of present illness; patient is a 74-year-old lady with past medical history significant for diverticulitis who presented to the ER because abdominal pain. Stated that she was all right 1 week back when he started noticing abdominal pain. Abdominal pain was intermittent, colicky, located in lower quadrant, no aggravating or relieving factor associated with this abdominal pain. There was no complaint nausea or vomiting. Denies any altered bowel movements and there was no complaint of blood in the stools. Patient visited urgent care and was placed on antibiotics for presumed diverticulitis. Patient abdominal pain persisted so she decided come to the ER. Initial lab work done in the ER showed WBC 12.7, hemoglobin 15.3, platelet count 280, sodium 139, potassium 4, BUN 11, creatinine 0.78, AST 20, ALT 14, alk phos 103 CT abdomen and pelvis done showed distal descending and sigmoid diffuse diverticulosis coli, abnormal wall thickening of the sigmoid a 1.6 x 1.2 cm focal hypodensity and perisigmoid fat stranding/edematous ill-defined heterogenous soft tissue in the left hemipelvis suggestive of acute/subacute diverticulitis like an early abscess formation acute sigmoid diverticulitis X-ray KUB done showed nonobstructive bowel gas pattern Patient admitted to internal medicine service 06/26/2024 Patient is evaluated in follow-up on the medical floor. Patient is reporting minimal to no abdominal discomfort at this time she has been up ambulating without difficulty. Patient was evaluated by interventional radiology and with no plans to place a drainage catheter for this abscess. Patient will continue on conservative management for now remains on IV Zosyn infectious disease and general surgery following for further recommendations. Started on clear liquid diet. 03/27/2024 Patient has been up ambulating and at this time reporting no abdominal pain. As this is her 3rd time with diverticulitis this year, ID recommending course of IV antibiotics on discharge and PICC Line will be placed. Also concern for intraabdominal abscess. White blood cell count normal at 9.09. June 28, 2024: Patient been tolerating a soft diet. Very mild abdominal pain if any.. On IV Invanz. Going home with the same. No fever no chills. Feels well. Having some small loose stools. Outpatient CT scan is being arranged by ID, he will follow-up on the same. Diet discussed. Patient follow-up with surgery Dr. Motta and ID. Discussion and discharge planning more than 35 minutes examination: VITAL SIGNS: [97.8, 87, 16, 1 3382, 97% room air] GENERAL APPEARANCE: Very chair, comfortable HEENT: Normal external appearance of nose and ear. Oral cavity normal EYES: Pupils equal. Conjunctiva normal. NECK: JVD not raised. Mass not palpable. RESPIRATORY: Respiratory effort normal. Lungs clear to auscultation. CARDIOVASCULAR: First and second sounds normal. No edema. ABDOMEN: Soft. Liver and spleen not palpable. No tenderness. No mass palpable. PSYCHIATRY: Alert and oriented x3. Mood and affect normal. INVESTIGATIONS, reviewed in the clinical context: June 27: White count 9 hemoglobin 12 platelets 260 sodium 140 potassium 3.8 creatinine 0.7 Assessment and plan: -Acute diverticulitis abscess continue with conservative management Patient seen by general surgery. Too small to be drained. Continue antibiotics. -Leukocytosis secondary to the diverticulitis -Acute diarrhea, antibiotic associated No white count no fever no abdominal pain. Clinically patient is much improved from presentation. Full code Disposition: Home Plan - Discharge Summary New Discharge Prescriptions: New Acetaminophen Tab [Tylenol] 650 mg PO Q6HR PRN tab PRN Reason: Fever And/ Or Pain Ertapenem [INVanz] 1 gm IVPB Q24H #14 each Discontinued Amoxic-Pot Clav 875-125Mg [Augmentin 875-125] 1 tab PO Q12HR Discharge Medication List Acetaminophen Tab [Tylenol] 650 mg PO Q6HR PRN tab 06/28/24 [Rx] Ertapenem [INVanz] 1 gm IVPB Q24H #14 each 06/28/24 [Rx] Follow up Appointment(s)/Referral(s): Gauri Wheat MD [Primary Care Provider] - 1-2 days [facility],Infusion [NON-STAFF] - 1 Week Horacio Motta DO [Medical Doctor] - 1 Week Luis Sanford MD [STAFF PHYSICIAN] - 1 Week (follow up with Dr. Sanford on 07/12/[address] scan. ) Patient Instructions/Handouts: Diverticulitis (ED), Diverticulitis (DC), Midline Catheter (DC), Midline Catheter (GEN) Activity/Diet/Wound Care/Special Instructions: Please show up for your infusion at [facility] office at 2:[address] SCAN SCHEDULE FOR 07/10/2024 AT 11:00AM. TAKE PRESCRIPTIONS WITH YOU TO CT AND HAVE LABS DONE PRIOR TO CT. FOLLOW UP SCHEDULED, SOONER FOR WORSENING SYMPTOMS, PROBLEMS, OR CONCERNS Discharge Disposition: HOME SELF-CARE
== END 2024-06-28 15:50 | disposition home or self-care (01) | DRG 391 ==
LOC: EC 22:59 → 5NMEDONC 06-25 02:44 → 6NMEDSUR 06-25 19:35
PROVIDERS: ADMIT Hospitalist; ATTEND Hospitalist
PROC: 02HV33Z Insertion of Infusion Device into Superior Vena Cava, Percutaneous Approach (ICD-10-PCS; principal; 2024-06-28 09:10)
DX: K57.20 Diverticulitis of large intestine with perforation and abscess without bleeding (principal); K65.1 Peritoneal abscess; K52.1 Toxic gastroenteritis and colitis; Z87.891 Personal history of nicotine dependence; T36.0X5A Adverse effect of penicillins, initial encounter
CPT/HCPCS: 36410; 36415; 51798; 74018; 74177; 76937; 80048; 80053; 82150; 83690; 85025; 87040; 96361; 96365; 96366; 99285

== ENCOUNTER → 2024-07-10 | Outpatient (CLI) | payer MEDICARE, OTHER ==
[2024-07-10 12:39] LABS: African American GFR (CKD) >90 (>60 ml/min/1.73 sqM); Blood Urea Nitrogen 10 mg/dL (7-17); Non-African American GFR(CKD) 86 (>60 ml/min/1.73 sqM)
--- NOTE | 2024-07-10 15:34 | CT ---
EXAMINATION TYPE: CT abdomen pelvis w con DATE OF EXAM: 07/10/2024 COMPARISON: 06/25/2024 HISTORY: f/u diverticulitis CT DLP: 446.9 mGycm Automated exposure control for dose reduction was used. TECHNIQUE: Helical acquisition of images was performed from the lung bases through the pelvis. CONTRAST: Performed with Oral Contrast and with IV Contrast, patient injected with 100 mL of Isovue 300. FINDINGS: There are densely calcified granulomas in the lung bases otherwise the lung bases are clear. The gallbladder is normal without distention, wall thickening, pericholecystic fluid or gallstones. T here is no biliary ductal dilatation. There is no focal mass or organomegaly involving the liver, pancreas, spleen or adrenal glands. There is no solid renal mass or hydronephrosis and there is homogeneous contrast enhancement of the r enal parenchyma. The caliber the abdominal aorta is normal is no retroperitoneal adenopathy or hemorr aldo. There is no bowel obstruction. There is moderate diverticulosis of the descending and sigmoid colon. There is diffuse thickening of the sigmoid wall and along the lateral aspect at the level of the hip there is a 2 cm mass which corresponds to previously identified 2.3 cm mass. This most likely represe nts a small pericolic abscess which is decreasing in the interval. The strand-like density in the per icolic fat seen on the prior study has resolved in the interval. There is no free intraperitoneal air or fluid. There is no pelvic mass or adenopathy. There is a fibroid uterus with calcifications. The osseous structures are intact. There is no free intraperitoneal air or fluid. No pelvic mass, free fluid, abscess or adenopathy. The osseous structures and soft tissues are intact. IMPRESSION: Partially resolving acute diverticulitis of the sigmoid colon as described above. There is no free ai r, free fluid or bowel obstruction. There is a small perisigmoid mass which appears to be a decreasin g abscess. [facility], , 07/10/2024 3:31 PM
== END | disposition home or self-care (01) ==
LOC: RADCTMAIN 11:49
PROVIDERS: ATTEND Internal Medicine Infectious Disease
DX: K57.32 Diverticulitis of large intestine without perforation or abscess without bleeding (principal)
CPT/HCPCS: 36415; 74177; 82565; 84520

== ENCOUNTER → 2024-07-24 | Outpatient (CLI) | payer MEDICARE, OTHER ==
[2024-07-24 08:50] LABS: African American GFR (CKD) 84 (>60 ml/min/1.73 sqM); Blood Urea Nitrogen 8 mg/dL (7-17); Non-African American GFR(CKD) 73 (>60 ml/min/1.73 sqM)
--- NOTE | 2024-07-24 10:19 | CT ---
EXAMINATION TYPE: CT abdomen pelvis w con CT DLP: 1128 mGycm, Automated exposure control for dose reduction was used. DATE OF EXAM: 07/24/2024 10:09 AM COMPARISON: CT abdomen pelvis 07/10/2024, 06/25/2024 CLINICAL INDICATION:Female, 74 years old with history of K57.3 DIVERTICULAR ABCESS; DIVERTICULAR ABCE SS TECHNIQUE: Standard CT of the abdomen and pelvis following the administration of 100 cc of Isovue 3 00 IV contrast material and oral contrast. Coronal and sagittal reformats were performed. FINDINGS: LOWER CHEST: Few calcified granulomas redemonstrated otherwise lung bases are clear ABDOMEN LIVER: Unremarkable GALLBLADDER AND BILE DUCTS: Unremarkable. PANCREAS: Unremarkable. SPLEEN: Unremarkable. ADRENAL GLANDS: Unremarkable. KIDNEYS AND URETERS: No evidence of hydronephrosis or renal calculus. The kidneys enhance symmetrical ly. Left renal sinus cysts. Stable left upper pole fat-containing 1.3 cm lesion (series 3, image 20). Contrast is noted within both collecting systems on the delayed phase. PELVIS BLADDER: Incompletely distended but grossly unremarkable. REPRODUCTIVE: Unremarkable. ABDOMEN & PELVIS STOMACH AND BOWEL: Stomach and duodenum are unremarkable. Enteric contrast reaches the rectum. The ap pendix is within normal limits. Near-complete resolution procedure demonstrates sigmoid diverticuliti s with some trace stranding identified. No organized fluid collections. Previously described small pe risigmoid mass appears to represent the left ovary. No evidence of bowel obstruction. PERITONEUM: No evidence of pneumoperitoneum or free fluid. VASCULATURE: Mild atherosclerotic calcifications are present throughout the abdominal aorta and its b ranches. No evidence of aortic aneurysm. Pelvic phleboliths. MUSCULOSKELETAL: No acute osseous abnormalities. Mild multilevel degenerative changes of the lumbar s pine. LYMPH NODES: No gross evidence for lymphadenopathy. SOFT TISSUE/ABDOMINAL WALL: Unremarkable IMPRESSION: 1. Near complete resolution of previously seen sigmoid diverticulitis. No surrounding organized fluid collections. 2. 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 [facility], , 07/24/2024 10:16 AM
== END | disposition home or self-care (01) ==
LOC: RADCTMAIN 08:10
PROVIDERS: ATTEND Internal Medicine Infectious Disease
CPT/HCPCS: 36415; 74177; 82565; 84520

== ENCOUNTER → 2024-10-02 | Day surgery (SDC) | payer MEDICARE, OTHER ==
[2024-09-28 15:39] VITALS: BMI 24.5
[~2024-10-02] MED LIST changes: -ATROPINE OPHTH SOLN 1% 5ML BTL BOTH EYES PRN; +GLYCOPYRROLATE 0.2 MG/ML 2 ML VIAL ONE; -LACTATED RINGERS 1,000 ML IV SCH; +LIDOCAINE 2% (PF) 20 MG/ML 5 ML VIAL ONE; -MOXIFLOXACIN HCL 0.5% DROPS 3 ML BTL OP PRN; +PROPOFOL 10 MG/ML 20 ML VIAL IV ONE; -TETRACAINE 0.5% OPHTH (PF) DROPS 4 ML BTL OP PRN; -TIMOLOL 0.5% OPHTH DROPS 5 ML BTL OP PRN
[2024-10-02] MEDS: IV FLUID CONTINUATION 1,000 ML IV ONE (08:39)
[2024-10-02 08:43] VITALS: TEMP 98
[2024-10-02] MEDS: LACTATED RINGERS 1,000 ML IV SCH (08:52)
--- NOTE | 2024-10-02 09:44 | P.PCN ---
Date of Procedure: 10/02/24 Preoperative Diagnosis: GERD Diverticulitis Postoperative Diagnosis: Gastritis Hiatal hernia Diverticulitis Concern for sigmoid stricture Procedure(s) Performed: EGD with biopsy Attempted colonoscopy Anesthesia: MAC Surgeon: Verena Cheng Pathology: other (Biopsies of duodenum, antrum, GE junction) Condition: stable Disposition: same day Indications for Procedure: 74-year-old female presents for upper and lower endoscopy. She has had multiple episodes of diverticulitis in the past with history of abscess as well. She also has had recent episodes of GERD. Plan is for upper and lower endoscopy for further evaluation and possible surgical recommendations. Risks, benefits and alternatives were provided to the patient. Operative Findings: Hiatal hernia Gastritis Possible diverticular stricture of sigmoid colon Description of Procedure: The patient was brought into the endoscopy suite and placed in left lateral decubitus position. Adequate sedation was achieved using conscious sedation. A bite-block was placed and an endoscope was placed in the oropharynx and advanced under endoscopic visualization. The endoscope was advanced through the esophagus into the stomach, through the gastric antrum and in through the pylorus. The third portion of duodenum was visualized. The endoscope was then slowly withdrawn. The first portion of duodenum was noted to have mild inflammatory changes. Biopsies were taken. Biopsies were taken. The antrum was noted to have mild inflammatory changes. Biopsies were taken. The gastric body distended normally and the gastric folds appeared normal and flattened with insufflation. A retroflexed view of the fundus and GE junction revealed mild hiatal hernia. GE junction appeared overall normal and biopsies were taken. The esophagus appeared endoscopically normal. Excess air was removed and the scope was withdrawn. Digital rectal exam was performed and mild internal hemorrhoids were palpated. An endoscope was then placed in the rectum and advanced about 30 cm. The prep was good. The scope was not able to be advanced any further without risk of perforation due to concern for stricturing and inability to continue to advance the scope. The colonoscope was then slowly withdrawn, examining for any mucosal abnormalities. Diverticulosis was noted and no evidence of any polyps on the evaluated portion of the colon. Hemostasis was maintained. Excess air was removed, the colonoscope withdrawn and the procedure terminated. The patient was then transferred to the recovery unit in stable condition. And is to follow-up in the surgery clinic to discuss further workup and surgical planning for likely sigmoid colectomy.
[2024-10-02 10:14] VITALS: BP 130/80; PULSE 79; RESP 16
--- NOTE | 2024-10-02 15:01 | FL ---
EXAMINATION TYPE: FL barium enema w air contrast DATE OF EXAM: 10/02/2024 1:16 PM CLINICAL INDICATION:Female, 74 years old with history of Hx Diverticulitis, Sigmoid Stricture; COMPARISON: 07/24/2024 CT TECHNIQUE: The procedure was explained and patient history elicited. All patient questions were answ ered prior to beginning. Multiple spot fluoroscopic images of the colon were obtained after the recta l administration of liquid barium as the contrast agent. Multiple postprocedural overhead images, w ere obtained and reviewed. Fluoroscopic time: 5 .36 min Fluoroscopic images:0 Radiographs taken: 89 DAP: NOT REPORTED mGym2 FINDINGS: The district captain abdominal radiograph demonstrates a normal bowel gas pattern without dilated loo ps of small or large bowel. There is no evidence for organomegaly or pneumoperitoneum. No abnormal calcifications. The visualized osseous structures are intact. The colon demonstrates normal course and contour without evidence of focal stricture, internal fillin g defects. There were scattered colonic diverticula present most pronounced in the sigmoid colon. Vi ews of the cecum with manual compression are unremarkable. Postevacuation images are unremarkable. IMPRESSION: 1. No evidence for abnormal stricture or mass lesion within the sigmoid colon. 2. Colonic diverticulosis worse in the sigmoid colon near the area of diverticulitis. Continued atten tion on follow-up imaging recommended with CT in 3 months with IV and oral contrast. [facility], , 10/02/2024 2:59 PM
== END | disposition home or self-care (01) ==
LOC: ORWHC2ENDO 07:54
PROVIDERS: ATTEND Surgery
DX: K29.50 Unspecified chronic gastritis without bleeding (principal); K21.00 Gastro-esophageal reflux disease with esophagitis, without bleeding; D72.820 Lymphocytosis (symptomatic); K31.89 Other diseases of stomach and duodenum; K44.9 Diaphragmatic hernia without obstruction or gangrene; K64.8 Other hemorrhoids; K57.30 Diverticulosis of large intestine without perforation or abscess without bleeding; Z88.2 Allergy status to sulfonamides; Z79.899 Other long term (current) drug therapy; Z98.890 Other specified postprocedural states; Z98.42 Cataract extraction status, left eye; Z98.41 Cataract extraction status, right eye
CPT/HCPCS: 81025; 88305; 74280; 45378; 43239; J2704; J2003; J1596

== ENCOUNTER → 2024-12-07 | Outpatient (CLI) | payer MEDICARE, OTHER ==
[2024-12-07 12:02] LABS: Appearance,Urine Clear (Clear); Bilirubin,Urine Negative (Negative); Blood,Urine Negative (Negative); Color,Urine Colorless; Glucose,Urine (UA) Negative (Negative); Ketones,Urine Negative (Negative); Leukocyte Esterase,Urine Trace (Negative); Mucus,Urine Rare /hpf; Nitrite,Urine Negative (Negative); Protein,Urine Negative (Negative); RBC,Urine <1 /hpf (0-5); Specific Gravity,Urine 1.011 (1.001-1.035); Squamous Epithelial Cell,Urine 1 /hpf (0-4); Urobilinogen,Urine <2.0 mg/dL (<2.0); WBC,Urine 2 /hpf (0-5)
[2024-12-07 12:06] LABS: Partial Thromboplastin Time 23.9 sec (22.0-30.0); Prothrombin Time 11.1 sec (10.0-12.5)
[2024-12-07 15:34] LABS: Blood Urea Nitrogen 13.8 mg/dL (9.0-27.0); Carbon Dioxide 24.1 mmol/L (21.6-31.8); Chloride 108 mmol/L (96-109); Glucose 94 mg/dL (70-110); Potassium 4.5 mmol/L (3.5-5.5); Sodium 143 mmol/L (135-145)
[2024-12-07 15:37] LABS: HCT 41.7 % (37.2-46.3); HGB 13.9 g/dL (12.0-15.0); MCH 29.7 pg (27.0-32.0); MCHC 33.3 g/dL (32.0-37.0); MCV 89.1 FL (80.0-97.0); Mean Platelet Volume 11.7 FL (9.5-12.2); NRBC Per 100 WBC 0 X 10*3/uL (0.00-0.01); Platelet Count 295 X 10*3/uL (140-440); RBC 4.68 X 10*6/uL (4.10-5.20); RDW 13.9 % (11.5-14.5); WBC 5.62 X 10*3/uL (4.50-10.00)
== END | disposition home or self-care (01) ==
LOC: LABPAT 11:03
PROVIDERS: ATTEND Surgery
DX: Z01.818 Encounter for other preprocedural examination (principal)
CPT/HCPCS: 80051; 81001; 82565; 82947; 84520; 85027; 85610; 85730; 86850; 86900; 86901

== ENCOUNTER 2024-12-13 10:41 | Inpatient (IN) | payer MEDICARE, OTHER ==
[2024-12-06 13:02] VITALS: BMI 24.5
[~2024-12-13 10:41] MED LIST changes: -GLYCOPYRROLATE 0.2 MG/ML 2 ML VIAL ONE; +HYDROmorphone 0.5 MG/0.5 ML SYRINGE IVP PRN; -LIDOCAINE 2% (PF) 20 MG/ML 5 ML VIAL ONE; -PROPOFOL 10 MG/ML 20 ML VIAL IV ONE; +metroNIDAZOLE-NS PMX 500 MG in SALINE 1 100ML.BAG IVPB PRN
[2024-12-13] MEDS: LACTATED RINGERS 1,000 ML IV ONE (11:27)
[2024-12-13] MEDS: DEXAMETHASONE SOD PHOSPHATE 4 MG/ML 1 ML VIAL IV ONE (11:43)
[2024-12-13] MEDS: LACTATED RINGERS 1,000 ML IV SCH ×3 (11:43→18:47)
[2024-12-13] MEDS: ONDANSETRON 4 MG/2 ML VIAL IVP ONE (11:43)
[2024-12-13] MEDS: MIDAZOLAM 2 MG/2 ML VIAL IV ONE (11:57)
[2024-12-13] MEDS ORDERED: NALOXONE 0.4 MG/ML 1 ML VIAL IV PRN ×2 (12:18→15:42)
--- NOTE | 2024-12-13 12:18 | P.ANPRN ---
Procedure Note - Anesthesia - Epidural/Spinal Epidural Continuous Time Out Performed: Yes Date of Procedure: 12/13/24 Procedure Start Time: 11:56 Procedure Stop Time: 12:01 Location of Patient: PreOp Indication: Acute Post-Operative Pain, Analgesia, Requested by Surgeon Sedation Type: Sedate with meaningful contact maintained Preparation: Sterile Prep Position: Sitting Catheter: Indwelling Needle Guage: 18 Narrative: Test dose with 4ml of 1.5% lidocaine with epinephrine. Negative S/S. Negative blood, paresthesia. Catheter skin level @8cm. Blood Aspirated: No Pain Paresthesia on Injection Noted: No Events: Uneventful and Well Tolerated
[2024-12-13] MEDS: HEPARIN SODIUM,PORCINE 5,000 UNIT/ML 1 ML VIAL SQ STA (13:19)
[2024-12-13] MEDS ORDERED: PROPOFOL 10 MG/ML 20 ML VIAL IV ONE (13:45)
[2024-12-13] MEDS ORDERED: ROCURONIUM 10 MG/ML (5 ML VIAL) IV ONE (13:45)
[2024-12-13] MEDS ORDERED: ePHEDrine 50 MG/ML 1 ML VIAL ONE (13:45)
[2024-12-13] MEDS ORDERED: GLYCOPYRROLATE 0.2 MG/ML 2 ML VIAL ONE (13:45)
[2024-12-13] MEDS ORDERED: LIDOCAINE 1% INJ 10MG/ML (20 ML MDV) ONE (13:45)
[2024-12-13] MEDS ORDERED: NEOSTIGMINE 1 MG/ML 10 ML VIAL ONE (13:45)
[2024-12-13] MEDS ORDERED: SUCCINYLCHOLINE CHLORIDE 200 MG/10 ML VIAL IV ONE (13:45)
[2024-12-13] MEDS ORDERED: fentaNYL (PF) 50 MCG/ML 2 ML AMP ONE (13:45)
[2024-12-13] MEDS: IV FLUID CONTINUATION 1,000 ML IV ONE (14:30)
[2024-12-13] MEDS: ONDANSETRON 4 MG/2 ML VIAL IVP PRN (18:00)
[2024-12-13] MEDS: HEPARIN SODIUM,PORCINE 5,000 UNIT/ML 1 ML VIAL SQ SCH (18:25)
[2024-12-13] MEDS: METOCLOPRAMIDE 5 MG/ML 2 ML VIAL IVP SCH ×2 (18:26→20:10)
--- NOTE | 2024-12-14 08:08 | P.PN ---
Progress Note - Text Progress Note Date: 12/14/24 (8857) Anesthesia Postop day 1 Status post open sigmoid resection with epidural day 2 Patient seen and examined. Doing well without complaint. VAS 0 out of 10. No nausea vomiting or pruritus. Ropivacaine0.1% with Dilaudid 20 mcg/mL at 8 cc an hour. Objective: Vital signs reviewed Lungs: Good chest excursion Abdomen: Appears nondistended Other: Epidural Site Intact without induration. Dressing intact Neuro: No apparent motor block. Sensory within normal limits. Assessment: Status post open sigmoid resection postop day 1 Plan: Continue current care with your medical management. Anticipate reevaluation tomorrow.
[2024-12-14] MEDS: PANTOPRAZOLE 40 MG/10 ML VIAL IV SCH (08:44)
[2024-12-14 10:37] LABS: Basophils # (A) 0.04 X 10*3/uL (0.00-0.10); Basophils % (A) 0.2 %; Eosinophils # (A) 0 X 10*3/uL (0.04-0.35); Eosinophils % (A) 0 %; HCT 39.6 % (37.2-46.3); HGB 12.6 g/dL (12.0-15.0); Lymphocytes # (A) 0.73 X 10*3/uL (0.90-5.00); Lymphocytes % (A) 3.5 %; MCH 29.2 pg (27.0-32.0); MCHC 31.8 g/dL (32.0-37.0); MCV 91.7 FL (80.0-97.0); Mean Platelet Volume 11.8 FL (9.5-12.2); Monocytes # (A) 0.79 X 10*3/uL (0.20-1.00); Monocytes % (A) 3.8 %; NRBC Per 100 WBC 0 X 10*3/uL (0.00-0.01); Neutrophils # (A) 18.97 X 10*3/uL (1.80-7.70); Neutrophils % (A) 92.1 %; Platelet Count 298 X 10*3/uL (140-440); RBC 4.32 X 10*6/uL (4.10-5.20); RDW 13.8 % (11.5-14.5); WBC 20.61 X 10*3/uL (4.50-10.00)
[2024-12-14 10:51] LABS: Blood Urea Nitrogen 18.8 mg/dL (9.0-27.0); Carbon Dioxide 17.7 mmol/L (21.6-31.8); Chloride 106 mmol/L (96-109); Glucose 199 mg/dL (70-110); Potassium 4.4 mmol/L (3.5-5.5); Sodium 139 mmol/L (135-145)
[2024-12-14 10:52] LABS: ALT 13 U/L (8-44); AST 15 U/L (13-35); Albumin 3.8 g/dL (3.8-4.9); Albumin/Globulin Ratio 1.73 Ratio (1.60-3.17); Alkaline Phosphatase 99 U/L (41-126); Calcium 9.2 mg/dL (8.7-10.3); Globulin 2.2 g/dL (1.6-3.3); Total Bilirubin 0.2 mg/dL (0.3-1.2)
[2024-12-14] MEDS: ROPIVACAINE 250 MG, HYDROMORPHONE (PF) 5 MG in SODIUM CHLORIDE 0.9% 200 ML EPIDURAL PRN (13:15)
--- NOTE | 2024-12-14 15:35 | P.PN ---
Subjective Progress Note Date: 12/14/24 SURGICAL PROGRESS NOTE CHIEF COMPLAINT: Diverticulitis HISTORY OF PRESENT ILLNESS: Postop day #1 status post laparoscopic converted to open sigmoid colectomy. Patient has epidural in place pain is controlled. She did have 1 episode of vomiting which was mostly water. She did report some nausea. No bowel activity. Afebrile. Urine output adequate. WBC is 20.6 Hgb 12.6 PHYSICAL EXAM: VITAL SIGNS: Reviewed. GENERAL: Well-developed in no acute distress. ABDOMEN: Soft. Nondistended. NEUROLOGIC: Alert and oriented. Cranial nerves II through XII grossly intact. ASSESSMENT: 1. Diverticulitis status post open sigmoid colectomy PLAN: -Continue clear liquid diet. Patient educated if she becomes nauseated to stop drinking liquids -Continue epidural -Continue Stephenson catheter -Continue IV fluids -Encourage patient to increase activity level -Incentive spirometer ordered -DVT prophylaxis subcu heparin and GI prophylaxis Protonix Physician Instrument Operator note has been reviewed by physician. Signing provider agrees with the documented findings, assessment, and plan of care. Attestation Patient seen and examined at bedside. Postoperative day #1, open sigmoid colectomy. Epidural in place. Patient states pain is well-controlled. She did have 1 episode of vomiting which was mostly water. Nausea seems to be improving with antiemetics. Currently leukocytosis of 20.6, reactive after surgery. Will continue to follow. Continue Stephenson catheter while epidural is in place. If patient continues to have emesis, recommended switching patient to NPO. Continue IV fluids. Continue to increase activity. Shilpin Cheng, DO Objective - Vital Signs Vital signs: Vital Signs Temp 97.5 F L 12/14/24 07:06 Pulse 64 12/14/24 07:06 Resp 18 12/14/24 08:45 BP 100/59 12/14/24 07:06 Pulse Ox 92 L 12/14/24 07:06 FiO2 Intake & Output 12/13/24 12/14/24 12/14/24 18:59 06:59 18:59 Intake Total 1750 Output Total 200 200 Balance 1550 -200 Weight 58.967 kg Intake: IV 1750 Output: Urine 150 200 Estimated Blood Loss 50 Other: Voiding Method Indwelling Catheter Indwelling Catheter - Labs CBC & Chem 7: 12/14/24 04:29 12/14/24 04:29
--- NOTE | 2024-12-15 06:10 | P.CONS ---
History of Present Illness - Reason for Consult Consult date: 12/14/24 Medical management status post colectomy for diverticulitis - History of Present Illness This is a very pleasant 74-year-old female who is admitted under general surgery services Dr. Cheng and is status post open sigmoid colectomy. Patient follows with Dr. Staci Wheat in the outpatient setting with past medical history of diverticulitis, kidney stones, osteoarthritis. Patient denies any alcohol, smoking or drug use. Patient has been following with Dr. Cheng in the outpatient setting for the surgical procedure. Patient's white count is mildly elevated above 20 likely reactive as patient does not appear infectious at all. Repeat labs ordered and will monitor closely. Internal medicine consulted for medical management. REVIEW OF SYSTEMS: CONSTITUTIONAL: No fever, no malaise, no fatigue. HEENT: No recent visual problems or hearing problems. Denied any sore throat. CARDIOVASCULAR: No chest pain, orthopnea, PND, no palpitations, no syncope. PULMONARY: No shortness of breath, no cough, no hemoptysis. GASTROINTESTINAL: No diarrhea, reports of nausea, no vomiting, reports abdominal pain. NEUROLOGICAL: No headaches, no weakness, no numbness. HEMATOLOGICAL: Denies any bleeding or petechiae. GENITOURINARY: Denies any burning micturition, frequency, or urgency. MUSCULOSKELETAL/RHEUMATOLOGICAL: Denies any joint pain, swelling, or any muscle pain. ENDOCRINE: Denies any polyuria or polydipsia. The rest of the 14-point review of systems is negative. PHYSICAL EXAMINATION: GENERAL: The patient is alert and oriented x3. Well developed, well nourished. Elderly appearing, thin built HEENT: Pupils are round and equally reacting to light. EOMI. No scleral icterus. No conjunctival pallor. Normocephalic, atraumatic. No pharyngeal erythema. No thyromegaly. CARDIOVASCULAR: S1 and S2 present. No murmurs, rubs, or gallops. PULMONARY: Chest is clear to auscultation, no wheezing or crackles. ABDOMEN: Soft, mildly tender, nondistended, normoactive bowel sounds. No palpable organomegaly. MUSCULOSKELETAL: No joint swelling or deformity. EXTREMITIES: No cyanosis, clubbing, or pedal edema. NEUROLOGICAL: Gross neurological examination did not reveal any focal deficits. Diffusely weak SKIN: No rashes. Assessment: Status post open sigmoid colectomy for diverticulitis History of osteoarthritis History of kidney stones GI prophylaxis DVT prophylaxis Full code Plan: Patient admitted under surgery services status post open colectomy for diverticulitis. Per family and patient at the bedside patient having some postoperative nausea and was given some antiemetics with some relief. Ins tructed patient to continue with ice chips and occasional sips of water for now and slowly advance to clear liquids once tolerating Recommend repeat labs in the a.m. Patient continues with epidural pain pump and has indwelling Stephenson catheter. Once epidural is removed recommend discontinuing Stephenson catheter and monitor for any retention Encourage incentive spirometer use at least 10 times every hour while awake Encourage increase activity as tolerated including sitting up in the chair more frequently We will continue to follow with general surgery during hospitalization The impression and plan of care has been dictated by Aydee Mehta, Nurse Practitioner as directed. Dr. Cyndi MD I have performed a history and examination and MDM of this patient, discussed the same with the dictator, and agree with the dictator's assessment and plan as written ,documented as a scribe. Based on total visit time, I have performed more than 50% of the visit. Past Medical History Past Medical History: Osteoarthritis (OA) Additional Past Medical History / Comment(s): hx kidney stones years ago. arthritis in hands and ankles History of Any Multi-Drug Resistant Organisms: None Reported Past Surgical History: Adenoidectomy, Tonsillectomy Additional Past Surgical History / Comment(s): rt cataract,kidney stones removed Past Anesthesia/Blood Transfusion Reactions: No Reported Reaction Past Psychological History: No Psychological Hx Reported Smoking Status: Former smoker Past Alcohol Use History: None Reported Additional Past Alcohol Use History / Comment(s): quit smoking , smoked approx 20 yrs Past Drug Use History: None Reported - Past Family History Mother Family Medical History: No Reported History Father Family Medical History: Prostate Disorder Additional Family Medical History / Comment(s): emphysema Medications and Allergies Home Medications Medication Instructions Recorded Confirmed Type Cholecalciferol (Vitamin D3) 150 mcg PO DAILY 12/06/24 12/06/24 History [Vitamin D3 (50 Mcg = 2000 Iu)] L.acidoph,Paracasei, B.lactis 1 each PO DAILY 12/06/24 12/06/24 History [Probiotic] Allergies Allergy/AdvReac Type Severity Reaction Status Date / Time Sulfa (Sulfonamide Allergy Unknown Verified 12/06/24 12:52 Antibiotics) Physical Exam Vitals: Vital Signs Temp Pulse Pulse Resp BP Pulse Ox 12/14/24 07:06 97.5 F L 64 18 100/59 92 L 12/14/24 01:08 97.4 F L 69 17 105/65 94 L 12/13/24 20:17 54 L 102/59 96 12/13/24 20:02 56 L 99/56 81 L 12/13/24 19:47 56 L 96/57 84 L 12/13/24 19:32 54 L 96/57 84 L 12/13/24 19:17 56 L 103/61 85 L 12/13/24 19:04 97.9 F 99 19 103/64 97 12/13/24 18:53 58 L 108/66 91 L 12/13/24 18:38 58 L 113/68 86 L 12/13/24 18:23 98.0 F 62 123/66 97 12/13/24 17:45 59 L 18 113/58 97 12/13/24 17:30 55 L 16 105/55 96 12/13/24 17:15 51 L 18 106/56 97 12/13/24 17:00 55 L 17 121/60 97 12/13/24 16:45 53 L 18 120/57 98 12/13/24 16:30 54 L 14 138/68 100 12/13/24 16:15 61 20 133/56 100 12/13/24 16:00 67 20 137/65 100 12/13/24 15:44 97.3 F L 80 16 152/78 100 12/13/24 12:22 79 18 118/59 100 12/13/24 11:57 83 18 142/70 100 12/13/24 11:26 97.7 F 79 18 157/86 98 Intake and Output 12/13/24 12/14/24 12/14/24 22:59 06:59 14:59 Intake Total 100 Output Total 150 200 Balance -50 -200 Intake: IV 100 Output: Urine 150 200 Other: Voiding Method Indwelling Catheter Weight 58.967 kg Results CBC & Chem 7: 12/14/24 04:29 12/14/24 04:29
--- NOTE | 2024-12-15 06:50 | P.PN ---
Progress Note - Text 12/15/24 631am 74-year-old female status post exploratory lap. Patient has an epidural catheter for postop pain control with a solution running at 8 cc an hour with a VAS of 1. Patient has been ambulating with no weakness or numbness in her legs. Dressing clean dry and intact. Plan to continue epidural infusion for another day
[2024-12-15 08:38] LABS: HCT 36.3 % (37.2-46.3); HGB 11.6 g/dL (12.0-15.0); MCH 29.7 pg (27.0-32.0); MCV 92.8 FL (80.0-97.0); Mean Platelet Volume 11.9 FL (9.5-12.2); NRBC Per 100 WBC 0 X 10*3/uL (0.00-0.01); Platelet Count 250 X 10*3/uL (140-440); RBC 3.91 X 10*6/uL (4.10-5.20); WBC 21.06 X 10*3/uL (4.50-10.00)
[2024-12-15 08:55] LABS: ALT 13 U/L (8-44); AST 20 U/L (13-35); Albumin 3.7 g/dL (3.8-4.9); Albumin/Globulin Ratio 1.85 Ratio (1.60-3.17); Alkaline Phosphatase 80 U/L (41-126); Blood Urea Nitrogen 24.5 mg/dL (9.0-27.0); Calcium 9.1 mg/dL (8.7-10.3); Carbon Dioxide 23.6 mmol/L (21.6-31.8); Chloride 104 mmol/L (96-109); Glucose 105 mg/dL (70-110); Potassium 4.5 mmol/L (3.5-5.5); Sodium 138 mmol/L (135-145); Total Bilirubin <0.2 mg/dL (0.3-1.2); Total Protein 5.7 g/dL (6.2-8.2)
[2024-12-15 10:34] LABS: Basophils # (A) 0.03 X 10*3/uL (0.00-0.10); Basophils % (A) 0.1 %; Eosinophils # (A) 0 X 10*3/uL (0.04-0.35); Eosinophils % (A) 0 %; Lymphocytes # (A) 1.27 X 10*3/uL (0.90-5.00); Monocytes % (A) 7.6 %; Neutrophils # (A) 18.01 X 10*3/uL (1.80-7.70); Neutrophils % (A) 85.6 %
--- NOTE | 2024-12-15 11:08 | XR ---
EXAMINATION TYPE: XR chest 1V portable DATE OF EXAM: 12/15/2024 10:52 AM COMPARISON: None. CLINICAL INDICATION: Female, 74 years old with history of shortness of breath, TECHNIQUE: XR chest 1V portable view(s) obtained. FINDINGS: The heart size is normal. The pulmonary vasculature is normal. Minimal streak atelectasis at the left base and costophrenic angle. Some streak atelectasis above the right diaphragm. There is free air under the right diaphragm. Patient had a sigmoid colectomy 2 days prior. Report was called to the floor nurse Rita by Dr. Greenwood by telephone at the time of interpretation. IMPRESSION: 1. Pneumoperitoneum. 2. Mild bibasilar streak atelectasis. [facility], , 12/15/2024 11:06 AM
--- NOTE | 2024-12-15 12:26 | P.PN ---
Subjective Progress Note Date: 12/15/24 SURGICAL PROGRESS NOTE CHIEF COMPLAINT: Diverticulitis HISTORY OF PRESENT ILLNESS: Postop day #2 status post laparoscopic converted to open sigmoid colectomy. Patient has epidural in place. Pain is controlled. Her nausea is improved. She has been up and ambulating. Denies any bowel activity. Afebrile. WBC is elevated from 20-21. Hgb 11.6. Service order chest x-ray reporting pneumoperitoneum and mild bibasilar streaky atelectasis PHYSICAL EXAM: VITAL SIGNS: Reviewed. GENERAL: Well-developed in no acute distress. ABDOMEN: Soft. Nondistended. Incisional dressing with old blood noted d istally NEUROLOGIC: Alert and oriented. Cranial nerves II through XII grossly intact. ASSESSMENT: 1. Diverticulitis status post open sigmoid colectomy 2. Atelectasis 3. Leukocytosis PLAN: -Antibiotics added for leukocytosis -Continue clear liquid diet -Abdominal binder ordered for support -Encourage patient to ambulate -Encourage patient to use incentive spirometer -Epidural and Stephenson catheter to be discontinued tomorrow -Pneumoperitoneum noted on chest x-ray due to recent surgical intervention -Continue IV fluids -Repeat CBC in a.m. -DVT prophylaxis subcu heparin and GI prophylaxis Protonix Physician Application Support Consultant note has been reviewed by physician. Signing provider agrees with the documented findings, assessment, and plan of care. Objective - Vital Signs Vital signs: Vital Signs Temp 98.1 F 12/15/24 07:45 Pulse 65 12/15/24 11:40 Resp 16 12/15/24 07:45 BP 149/80 12/15/24 11:40 Pulse Ox 96 12/15/24 11:40 FiO2 Intake & Output 12/14/24 12/15/24 12/15/24 18:59 06:59 18:59 Intake Total 240 Output Total 175 Balance -175 240 Intake: Oral 240 Output: Urine 175 Other: Voiding Method Indwelling Catheter Indwelling Catheter # Voids 450 - Labs CBC & Chem 7: 12/15/24 05:46 12/15/24 05:46 Labs: Abnormal Lab Results - Last 24 Hours (Table) 12/15/24 12/15/24 Range/Units 05:46 05:46 WBC 21.06 H (4.50-10.00) X 10*3/uL RBC 3.91 L (4.10-5.20) X 10*6/uL Hgb 11.6 L (12.0-15.0) g/dL Hct 36.3 L (37.2-46.3) % Immature Gran # 0.15 H (0.00-0.04) X 10*3/uL Neutrophils # 18.01 H (1.80-7.70) X 10*3/uL Monocytes # 1.60 H (0.20-1.00) X 10*3/uL Eosinophils # 0 L (0.04-0.35) X 10*3/uL Est GFR (CKD-EPI) 59 L (>=60) BUN/Creatinine Ratio 24.50 H (12.00-20.00) Ratio Total Bilirubin <0.2 L (0.3-1.2) mg/dL Total Protein 5.7 L (6.2-8.2) g/dL Albumin 3.7 L (3.8-4.9) g/dL Assessment and Plan Assessment: doing very well, continue current diet and await bowel function. Anticipate discharge likely in 48hrs. Time with Patient: Less than 30
[2024-12-15 13:47] LABS: Appearance,Urine Clear (Clear); Bacteria,Urine Rare /hpf; Bilirubin,Urine Negative (Negative); Blood,Urine Small (Negative); Color,Urine Colorless; Glucose,Urine (UA) Negative (Negative); Ketones,Urine Negative (Negative); Leukocyte Esterase,Urine Small (Negative); Mucus,Urine Rare /hpf; Nitrite,Urine Negative (Negative); PH, Urine 5.5 (5.0-8.0); Protein,Urine Negative (Negative); RBC,Urine 4 /hpf (0-5); Specific Gravity,Urine 1.013 (1.001-1.035); Urobilinogen,Urine <2.0 mg/dL (<2.0); WBC,Urine 4 /hpf (0-5)
[2024-12-15] MEDS: PIPERACILLIN-TAZOBACTAM 3.375 GM in SODIUM CHLORIDE 0.9% 100 ML IVPB SCH (15:06)
[2024-12-15] MEDS: CALCIUM CARBONATE 500 MG CHEWABLE PO PRN (15:34)
--- NOTE | 2024-12-16 06:47 | P.PN ---
Subjective Progress Note Date: 12/15/24 Reason for Consult Consult date: 12/14/24 Medical management status post colectomy for diverticulitis - History of Present Illness This is a very pleasant 74-year-old female who is admitted under general surgery services Dr. Cheng and is status post open sigmoid colectomy. Patient follows with Dr. Staci Wheat in the outpatient setting with past medical history of diverticulitis, kidney stones, osteoarthritis. Patient denies any alcohol, smoking or drug use. Patient has been following with Dr. Cheng in the outpatient setting for the surgical procedure. Patient's white count is mildly elevated above 20 likely reactive as patient does not appear infectious at all. Repeat labs ordered and will monitor closely. Internal medicine consulted for medical management. 12/15/2024 Patient is seen in follow-up today with no acute overnight issues noted. Patient currently standing up at the bedside as she continues with epidural and Stephenson catheter and has been standing up frequently doing walking in place exercises including using her incentive spirometer. Patient is continued on 1 to 2 L of oxygen via nasal cannula although she feels she does not need it and does not feel short of breath. Encouraged continued incentive spirometer use and will evaluate off O2. Patient continues with clear liquids and tolerating although continues to have not much of an appetite. Patient reports not passing gas and no bowel movement as of yet. Review of systems: Constitutional: No reports of fatigue, fever, or chills Cardiovascular: No reports of chest pain or palpitations Respiratory: No reports of shortness of breath or cough GI: No reports of nausea, vomiting, or diarrhea no gas and no bowel movement as of yet, some abdominal discomfort noted : No reports of dysuria or retention Neurovascular: No reports of weakness or numbness All medications have been reviewed The rest of the 14-point review of systems is negative. PHYSICAL EXAMINATION: GENERAL: The patient is alert and oriented x3. Well developed, well nourished. Elderly appearing, thin built HEENT: Pupils are round and equally reacting to light. EOMI. No scleral icterus. No conjunctival pallor. Normocephalic, atraumatic. No pharyngeal erythema. No thyromegaly. CARDIOVASCULAR: S1 and S2 present. No murmurs, rubs, or gallops. PULMONARY: Chest is clear to auscultation, no wheezing or crackles. ABDOMEN: Soft, mildly tender, nondistended, hypoactive bowel sounds. No palpable organomegaly. MUSCULOSKELETAL: No joint swelling or deformity. EXTREMITIES: No cyanosis, clubbing, or pedal edema. NEUROLOGICAL: Gross neurological examination did not reveal any focal deficits. Diffusely weak SKIN: No rashes. Assessment: Status post open sigmoid colectomy for diverticulitis Leukocytosis, likely reactive although remains elevated above 20 and will obtain chest x-ray and urinalysis History of osteoarthritis History of kidney stones GI prophylaxis DVT prophylaxis Full code Plan: Patient admitted under surgery services status post open colectomy for diverticulitis. Per family and patient at the bedside patient having some postoperative nausea and was given some antiemetics with some relief. Instructed patient to continue with ice chips and occasional sips of water for now and slowly advance to clear liquids once tolerating Recommend repeat labs in the a.m. White count is elevated and likely reactive. Patient is afebrile and denies any shortness of breath cough, pain or burning, will obtain a chest x-ray and urinalysis. Patient is not currently on any antibiotics Patient continues with epidural pain pump and has indwelling Stephenson catheter. Once epidural is removed recommend discontinuing Stephenson catheter and monitor for any retention. Patient has been up at the bedside and getting up and standing and walking in place and encouraged patient to continue to do so as tolerated Encourage incentive spirometer use at least 10 times every hour while awake Encourage increase activity as tolerated We will continue to follow with general surgery during hospitalization The impression and plan of care has been dictated by Aydee Mehta, Nurse Practitioner as directed. Dr. Cyndi MD I have performed a history and examination and MDM of this patient, discussed the same with the dictator, and agree with the dictator's assessment and plan as written ,documented as a scribe. Based on total visit time, I have performed more than 50% of the visit. Objective - Vital Signs Vital signs: Vital Signs Temp 98.1 F 12/15/24 07:45 Pulse 70 12/15/24 07:45 Resp 16 12/15/24 07:45 BP 123/68 12/15/24 07:45 Pulse Ox 98 12/15/24 07:45 FiO2 Intake & Output 12/14/24 12/15/24 12/15/24 18:59 06:59 18:59 Intake Total 240 Output Total 175 Balance -175 240 Intake: Oral 240 Output: Urine 175 Other: Voiding Method Indwelling Catheter Indwelling Catheter # Voids 450 - Labs CBC & Chem 7: 12/15/24 05:46 12/15/24 05:46 Labs: Abnormal Lab Results - Last 24 Hours (Table) 12/14/24 12/14/24 12/15/24 Range/Units 04:29 04:29 05:46 WBC 20.61 H 21.06 H (4.50-10.00) X 10*3/uL RBC 3.91 L (4.10-5.20) X 10*6/uL Hgb 11.6 L (12.0-15.0) g/dL Hct 36.3 L (37.2-46.3) % MCHC 31.8 L (32.0-37.0) g/dL Immature Gran # 0.08 H (0.00-0.04) X 10*3/uL Neutrophils # 18.97 H (1.80-7.70) X 10*3/uL Lymphocytes # 0.73 L (0.90-5.00) X 10*3/uL Eosinophils # 0 L (0.04-0.35) X 10*3/uL Carbon Dioxide 17.7 L (21.6-31.8) mmol/L Anion Gap 15.30 H (4.00-12.00) mmol/L Est GFR (CKD-EPI) 59 L (>=60) BUN/Creatinine Ratio (12.00-20.00) Ratio Glucose 199 H (70-110) mg/dL Total Bilirubin 0.2 L (0.3-1.2) mg/dL Total Protein 6.0 L (6.2-8.2) g/dL Albumin (3.8-4.9) g/dL 12/15/24 Range/Units 05:46 WBC (4.50-10.00) X 10*3/uL RBC (4.10-5.20) X 10*6/uL Hgb (12.0-15.0) g/dL Hct (37.2-46.3) % MCHC (32.0-37.0) g/dL Immature Gran # (0.00-0.04) X 10*3/uL Neutrophils # (1.80-7.70) X 10*3/uL Lymphocytes # (0.90-5.00) X 10*3/uL Eosinophils # (0.04-0.35) X 10*3/uL Carbon Dioxide (21.6-31.8) mmol/L Anion Gap (4.00-12.00) mmol/L Est GFR (CKD-EPI) 59 L (>=60) BUN/Creatinine Ratio 24.50 H (12.00-20.00) Ratio Glucose (70-110) mg/dL Total Bilirubin <0.2 L (0.3-1.2) mg/dL Total Protein 5.7 L (6.2-8.2) g/dL Albumin 3.7 L (3.8-4.9) g/dL
[2024-12-16 07:29] LABS: ALT 16 U/L (4-34); AST 25 U/L (14-36); African American GFR (CKD) 82 (>60 ml/min/1.73 sqM); Albumin 3.1 g/dL (3.5-5.0); Albumin/Globulin Ratio 1.3; Alkaline Phosphatase 80 U/L (38-126); Anion Gap 6 mmol/L; Blood Urea Nitrogen 14 mg/dL (7-17); Calcium 9.2 mg/dL (8.4-10.2); Carbon Dioxide 26 mmol/L (22-30); Chloride 102 mmol/L (98-107); Globulin 2.4 g/dL; Glucose 102 mg/dL (74-99); Non-African American GFR(CKD) 71 (>60 ml/min/1.73 sqM); Potassium 4.2 mmol/L (3.5-5.1); Sodium 134 mmol/L (137-145); Total Bilirubin 0.4 mg/dL (0.2-1.3); Total Protein 5.5 g/dL (6.3-8.2)
[2024-12-16 07:49] LABS: Basophils % (A) 0 %; Eosinophils # (A) 0.1 k/uL (0-0.7); Eosinophils % (A) 1 %; HCT 36.1 % (34.0-46.0); HGB 11.1 gm/dL (11.4-16.0); Lymphocytes # (A) 1.1 k/uL (1.0-4.8); Lymphocytes % (A) 9 %; MCH 28.9 pg (25.0-35.0); MCHC 30.9 g/dL (31.0-37.0); MCV 93.5 fL (80.0-100.0); Mean Platelet Volume 10.3; Monocytes # (A) 0.6 k/uL (0-1.0); Monocytes % (A) 5 %; Neutrophils # (A) 9.9 k/uL (1.3-7.7); Neutrophils % (A) 84 %; Platelet Count 222 k/uL (150-450); RBC 3.86 m/uL (3.80-5.40); RDW 13.5 % (11.5-15.5); WBC 11.8 k/uL (3.8-10.6)
--- NOTE | 2024-12-16 10:05 | P.PN ---
Progress Note - Text Adequate analgesia with epidural. No anesthetic complication. Epidural catheter to be taken out today as per surgeon.
[2024-12-16 12:10] LABS: Glucose,Whole Blood 109 mg/dL (70-110)
[2024-12-16] MEDS ORDERED: HYDROmorphone 0.5 MG/0.5 ML SYRINGE IVP PRN (12:18)
[2024-12-16] MEDS ORDERED: ACETAMINOPHEN TAB 325 MG TAB PO PRN (12:18)
[2024-12-16] MEDS: HYDROcodone/APAP 5-325MG 1 EACH TAB PO PRN (12:36)
--- NOTE | 2024-12-16 14:41 | P.PN ---
Progress Note - Text Progress Note Date: 12/16/24 CHIEF COMPLAINT: Diverticulitis HISTORY OF PRESENT ILLNESS: Postop day #3 status post laparoscopic converted to open sigmoid colectomy. She is doing well. Epidural removed this AM. Pain is controlled. Her nausea is improved. She has been up and ambulating. Denies any bowel activity. Afebrile. Tolerating CLD. PHYSICAL EXAM: VITAL SIGNS: Reviewed. GENERAL: Well-developed in no acute distress. ABDOMEN: Soft. Nondistended. Incisional dressing with old blood noted distally NEUROLOGIC: Alert and oriented. Cranial nerves II through XII grossly intact. ASSESSMENT: 1. Diverticulitis status post open sigmoid colectomy 2. Atelectasis 3. Leukocytosis PLAN: -Antibiotics added for leukocytosis -Continue clear liquid diet -Abdominal binder ordered for support -Encourage patient to ambulate -Encourage patient to use incentive spirometer -Epidural removed. Stephenson to be removed later today. -Colace added -Continue IV fluids -DVT prophylaxis subcu heparin and GI prophylaxis Protonix Horacio Motta DO [facility] [phone]
[2024-12-16 17:22] LABS: Glucose,Whole Blood 101 mg/dL (70-110)
--- NOTE | 2024-12-17 01:16 | P.PN ---
Subjective Progress Note Date: 12/16/24 Reason for Consult Consult date: 12/14/24 Medical management status post colectomy for diverticulitis - History of Present Illness This is a very pleasant 74-year-old female who is admitted under general surgery services Dr. Cheng and is status post open sigmoid colectomy. Patient follows with Dr. Staci Wheat in the outpatient setting with past medical history of diverticulitis, kidney stones, osteoarthritis. Patient denies any alcohol, smoking or drug use. Patient has been following with Dr. Cheng in the outpatient setting for the surgical procedure. Patient's white count is mildly elevated above 20 likely reactive as patient does not appear infectious at all. Repeat labs ordered and will monitor closely. Internal medicine consulted for medical management. 12/15/2024 Patient is seen in follow-up today with no acute overnight issues noted. Patient currently standing up at the bedside as she continues with epidural and Stephenson catheter and has been standing up frequently doing walking in place exercises including using her incentive spirometer. Patient is continued on 1 to 2 L of oxygen via nasal cannula although she feels she does not need it and does not feel short of breath. Encouraged continued incentive spirometer use and will evaluate off O2. Patient continues with clear liquids and tolerating although continues to have not much of an appetite. Patient reports not passing gas and no bowel movement as of yet. 12/16/2024 Patient is seen in follow-up today. White count significantly improved and tren ding down at 11 and was 21 yesterday. Chest x-ray with concerns of atelectasis and strongly encouraged incentive spirometer. Patient has been using and has also been up at the bedside. Plan is to remove epidural today and will likely remove indwelling Stephenson catheter. Patient reports feels a lot of gurgling with no reported gas passing or bowel movement as of yet. Patient tolerating some clear liquids and will be advanced per surgery. Patient is afebrile with no reported chest pain or shortness of breath. Follow-up on repeat labs in the AM. Review of systems: Constitutional: No reports of fatigue, fever, or chills Cardiovascular: No reports of chest pain or palpitations Respiratory: No reports of shortness of breath or cough GI: No reports of nausea, vomiting, or diarrhea no gas and no bowel movement as of yet, some abdominal discomfort noted : No reports of dysuria or retention Neurovascular: No reports of weakness or numbness All medications have been reviewed The rest of the 14-point review of systems is negative. PHYSICAL EXAMINATION: GENERAL: The patient is alert and oriented x3. Well developed, thin built. Elderly appearing, thin built HEENT: Pupils are round and equally reacting to light. EOMI. No scleral icterus. No conjunctival pallor. Normocephalic, atraumatic. No pharyngeal erythema. No thyromegaly. CARDIOVASCULAR: S1 and S2 present. No murmurs, rubs, or gallops. PULMONARY: Diminished breath sounds bilaterally otherwise chest is clear to auscultation, no wheezing or crackles. ABDOMEN: Soft, mildly tender, nondistended, hypoactive bowel sounds. No palpable organomegaly. MUSCULOSKELETAL: No joint swelling or deformity. EXTREMITIES: No cyanosis, clubbing, or pedal edema. NEUROLOGICAL: Gross neurological examination did not reveal any focal deficits. Diffusely weak SKIN: No rashes. Assessment: Status post open sigmoid colectomy for diverticulitis Leukocytosis, likely reactive although remains elevated above 20, empiric antibiotics started per surgery, improving and white count is currently 11 today. Patient remains afebrile History of osteoarthritis History of kidney stones GI prophylaxis DVT prophylaxis Full code Plan: Patient admitted under surgery services status post open colectomy for diverticulitis. White count is elevated and likely reactive. Patient is afebrile and denies any shortness of breath cough, pain or burning, chest x-ray with some atelectasis. Patient was empirically started on antibiotics per surgery and will continue for now. White count is significantly improved at 11 today and patient remains afebrile Patient continues with epidural pain pump and has indwelling Stephenson catheter. Per nursing staff at the bedside, plans for epidural removal as well as Stephenson catheter later today. Patient has been up at the bedside and getting up and standing and walking in place and encouraged patient to continue to do so as tolerated Encourage incentive spirometer use at least 10 times every hour while awake We will continue to follow with general surgery during hospitalization The impression and plan of care has been dictated by Aydee Mehta, Nurse Practitioner as directed. Dr. Cyndi MD I have performed a history and examination and MDM of this patient, discussed the same with the dictator, and agree with the dictator's assessment and plan as written ,documented as a scribe. Based on total visit time, I have performed more than 50% of the visit. Objective - Vital Signs Vital signs: Vital Signs Temp 97.9 F 12/16/24 07:26 Pulse 68 12/16/24 07:26 Resp 18 12/16/24 07:26 BP 151/80 12/16/24 07:26 Pulse Ox 94 L 12/16/24 07:26 FiO2 Intake & Output 12/15/24 12/16/24 12/16/24 18:59 06:59 18:59 Intake Total 805.467 Output Total 950 500 Balance -144.533 -500 Intake: Intake, IV Titration 205.467 Amount Ropivacaine 250 mg 205.467 Hydromorphone (Pf) 5 mg In Sodium Chloride 0.9% 200 ml @ Per Protocol EPIDURAL .Q0M PRN Rx#: [id number] Oral 600 Output: Urine 950 500 Other: Voiding Method Indwelling Catheter - Labs CBC & Chem 7: 12/16/24 05:31 12/16/24 05:31 Labs: Abnormal Lab Results - Last 24 Hours (Table) 12/15/24 12/15/24 12/16/24 Range/Units 05:46 13:20 05:31 WBC 11.8 H (3.8-10.6) k/uL Hgb 11.1 L (11.4-16.0) gm/dL MCHC 30.9 L (31.0-37.0) g/dL Immature Gran # 0.15 H (0.00-0.04) X 10*3/uL Neutrophils # 18.01 H 9.9 H (1.80-7.70) X 10*3/uL Monocytes # 1.60 H (0.20-1.00) X 10*3/uL Eosinophils # 0 L (0.04-0.35) X 10*3/uL Sodium (137-145) mmol/L Glucose (74-99) mg/dL Total Protein (6.3-8.2) g/dL Albumin (3.5-5.0) g/dL Urine Blood Small H (Negative) Ur Leukocyte Esterase Small H (Negative) Urine Bacteria Rare H (None) /hpf Urine Mucus Rare H (None) /hpf 12/16/24 Range/Units 05:31 WBC (3.8-10.6) k/uL Hgb (11.4-16.0) gm/dL MCHC (31.0-37.0) g/dL Immature Gran # (0.00-0.04) X 10*3/uL Neutrophils # (1.80-7.70) X 10*3/uL Monocytes # (0.20-1.00) X 10*3/uL Eosinophils # (0.04-0.35) X 10*3/uL Sodium 134 L (137-145) mmol/L Glucose 102 H (74-99) mg/dL Total Protein 5.5 L (6.3-8.2) g/dL Albumin 3.1 L (3.5-5.0) g/dL Urine Blood (Negative) Ur Leukocyte Esterase (Negative) Urine Bacteria (None) /hpf Urine Mucus (None) /hpf
--- NOTE | 2024-12-17 05:56 | P.PN ---
Progress Note - Text Progress Note Date: 12/17/24 CHIEF COMPLAINT: Diverticulitis HISTORY OF PRESENT ILLNESS: Postop day #4 status post laparoscopic converted to open sigmoid colectomy. She is doing well. Pain is controlled. Her nausea is improved. She has been up and ambulating. Passing a little gas. Afebrile. Tolerating CLD. Epidural and Stephenson removed yesterday. PHYSICAL EXAM: VITAL SIGNS: Reviewed. GENERAL: Well-developed in no acute distress. ABDOMEN: Soft. Nondistended. Incisional dressing with old blood noted distally NEUROLOGIC: Alert and oriented. Cranial nerves II through XII grossly intact. ASSESSMENT: 1. Diverticulitis status post open sigmoid colectomy 2. Atelectasis 3. Leukocytosis PLAN: -Antibiotics added for leukocytosis -Continue clear liquid diet -Abdominal binder ordered for support -Encourage patient to ambulate -Encourage patient to use incentive spirometer -Colace added -Continue IV fluids -DVT prophylaxis subcu heparin and GI prophylaxis Protonix [facility] [phone]
[2024-12-17] MEDS: DOCUSATE 100 MG CAP PO SCH (08:09)
[2024-12-17 09:47] LABS: Basophils # (A) 0.05 X 10*3/uL (0.00-0.10); Basophils % (A) 0.6 %; Eosinophils # (A) 0.21 X 10*3/uL (0.04-0.35); Eosinophils % (A) 2.7 %; HCT 34.8 % (37.2-46.3); HGB 11.3 g/dL (12.0-15.0); Lymphocytes % (A) 15.3 %; MCH 29.4 pg (27.0-32.0); MCHC 32.5 g/dL (32.0-37.0); MCV 90.4 FL (80.0-97.0); Mean Platelet Volume 12.2 FL (9.5-12.2); Monocytes # (A) 0.71 X 10*3/uL (0.20-1.00); NRBC Per 100 WBC 0 X 10*3/uL (0.00-0.01); Neutrophils # (A) 5.67 X 10*3/uL (1.80-7.70); Neutrophils % (A) 72.1 %; Platelet Count 232 X 10*3/uL (140-440); RBC 3.85 X 10*6/uL (4.10-5.20); RDW 13.5 % (11.5-14.5); WBC 7.86 X 10*3/uL (4.50-10.00)
[2024-12-17 11:57] LABS: BUN/Creat Ratio 8.62 Ratio (12.00-20.00); Blood Urea Nitrogen 6.9 mg/dL (9.0-27.0); Carbon Dioxide 26.4 mmol/L (21.6-31.8); Chloride 106 mmol/L (96-109); Glucose 102 mg/dL (70-110); Potassium 3.7 mmol/L (3.5-5.5); Sodium 143 mmol/L (135-145)
--- NOTE | 2024-12-18 04:14 | P.PN ---
Subjective Progress Note Date: 12/17/24 Reason for Consult Consult date: 12/14/24 Medical management status post colectomy for diverticulitis - History of Present Illness This is a very pleasant 74-year-old female who is admitted under general surgery services Dr. Cheng and is status post open sigmoid colectomy. Patient follows with Dr. Staci Wheat in the outpatient setting with past medical history of diverticulitis, kidney stones, osteoarthritis. Patient denies any alcohol, smoking or drug use. Patient has been following with Dr. Cheng in the outpatient setting for the surgical procedure. Patient's white count is mildly elevated above 20 likely reactive as patient does not appear infectious at all. Repeat labs ordered and will monitor closely. Internal medicine consulted for medical management. 12/15/2024 Patient is seen in follow-up today with no acute overnight issues noted. Patient currently standing up at the bedside as she continues with epidural and Stephenson catheter and has been standing up frequently doing walking in place exercises including using her incentive spirometer. Patient is continued on 1 to 2 L of oxygen via nasal cannula although she feels she does not need it and does not feel short of breath. Encouraged continued incentive spirometer use and will evaluate off O2. Patient continues with clear liquids and tolerating although continues to have not much of an appetite. Patient reports not passing gas and no bowel movement as of yet. 12/16/2024 Patient is seen in follow-up today. White count significantly improved and tren ding down at 11 and was 21 yesterday. Chest x-ray with concerns of atelectasis and strongly encouraged incentive spirometer. Patient has been using and has also been up at the bedside. Plan is to remove epidural today and will likely remove indwelling Stephenson catheter. Patient reports feels a lot of gurgling with no reported gas passing or bowel movement as of yet. Patient tolerating some clear liquids and will be advanced per surgery. Patient is afebrile with no reported chest pain or shortness of breath. Follow-up on repeat labs in the AM. 12/17/2024 Patient is seen in follow-up today and Stephenson catheter along with epidural was removed yesterday. Patient is up and voiding reports the passing some gas. Patient is continued on clear liquids and recommend to continue per surgery recommendations. Labs reviewed and within normal limits. Working on his incentive spirometer and maintaining oxygen saturation at 94% room air. Patient has been encouraged to take frequent walks as tolerated. Review of systems: Constitutional: No reports of fatigue, fever, or chills Cardiovascular: No reports of chest pain or palpitations Respiratory: No reports of shortness of breath or cough GI: No reports of nausea, vomiting, or diarrhea, reports passing gas and no bowel movement as of yet, some abdominal discomfort noted although improving : No reports of dysuria or retention Neurovascular: No reports of weakness or numbness All medications have been reviewed The rest of the 14-point review of systems is negative. PHYSICAL EXAMINATION: GENERAL: The patient is alert and oriented x3. Well developed, thin built. Elderly appearing, thin built HEENT: Pupils are round and equally reacting to light. EOMI. No scleral icterus. No conjunctival pallor. Normocephalic, atraumatic. No pharyngeal erythema. No thyromegaly. CARDIOVASCULAR: S1 and S2 present. No murmurs, rubs, or gallops. PULMONARY: Diminished breath sounds bilaterally otherwise chest is clear to auscultation, no wheezing or crackles. ABDOMEN: Soft, mildly tender, nondistended, hypoactive bowel sounds. No palpable organomegaly. MUSCULOSKELETAL: No joint swelling or deformity. EXTREMITIES: No cyanosis, clubbing, or pedal edema. NEUROLOGICAL: Gross neurological examination did not reveal any focal deficits. Diffusely weak SKIN: No rashes. Assessment: Status post open sigmoid colectomy for diverticulitis Leukocytosis, likely reactive although remains elevated above 20, empiric antibiotics started per surgery, improving and white count is currently 11 today. Patient remains afebrile History of osteoarthritis History of kidney stones GI prophylaxis DVT prophylaxis Full code Plan: Patient admitted under surgery services status post open colectomy for diverticulitis. White count was elevated and likely reactive. Patient is afebrile and denies any shortness of breath cough, pain or burning, chest x-ray with some atelectasis. Patient was empirically started on antibiotics per surgery and will continue for now. White count is significantly improved and normalized and patient remains afebrile Patient had epidural pump and indwelling Stephenson catheter removed. Patient is voiding with no difficulties. Encouraged increase activity as tolerated with frequent walks Encourage incentive spirometer use at least 10 times every hour while awake We will continue to follow with general surgery during hospitalization The impression and plan of care has been dictated by Aydee Mehta, Nurse Practitioner as directed. Dr. Cyndi MD I have performed a history and examination and MDM of this patient, discussed the same with the dictator, and agree with the dictator's assessment and plan as written ,documented as a scribe. Based on total visit time, I have performed more than 50% of the visit. Objective - Vital Signs Vital signs: Vital Signs Temp 98.5 F 12/17/24 07:32 Pulse 65 12/17/24 07:32 Resp 20 12/17/24 07:32 BP 162/88 12/17/24 07:32 Pulse Ox 95 12/17/24 07:32 FiO2 Intake & Output 12/16/24 12/17/24 12/17/24 18:59 06:59 18:59 Other: Voiding Method Indwelling Catheter Toilet # Voids 3 - Labs CBC & Chem 7: 12/17/24 05:47 12/17/24 05:47
--- NOTE | 2024-12-18 13:13 | P.PN ---
Subjective Progress Note Date: 12/18/24 SURGICAL PROGRESS NOTE CHIEF COMPLAINT: Diverticulitis HISTORY OF PRESENT ILLNESS: Postop day #5 status post laparoscopic converted to open sigmoid colectomy. Patient reports her pain is controlled. She does have pain with movement. She is having bowel movements. Denies any nausea or vomiting. She wants advancement of diet. She did have some heartburn over the weekend which did improve with Tums. She has been up and ambulating. Denies any difficulty urinating. Afebrile. WBC normalized at 7.86 Hgb 11.3 PHYSICAL EXAM: VITAL SIGNS: Reviewed. GENERAL: Well-developed in no acute distress. ABDOMEN: Soft. Nondistended. Incisional dressing with old blood noted distally NEUROLOGIC: Alert and oriented. Cranial nerves II through XII grossly intact. ASSESSMENT: 1. Diverticulitis status post open sigmoid colectomy 2. Atelectasis 3. Leukocytosis improved PLAN: -Advance diet to full liquids -Encourage patient to use oral pain medication for pain management -Continue antibiotics -Discontinue IV fluids -Encourage patient to ambulate -DVT prophylaxis subcu heparin and GI prophylaxis Protonix Physician Children Counselor note has been reviewed by physician. Signing provider agrees with the documented findings, assessment, and plan of care. Attestation Patient was seen and examined at bedside on 12/18/2024. Status post lap converted to open sigmoid colectomy. She is doing well. Having bowel function. She was advanced to full liquid diet with plan for advancement to low fiber diet later today. IV antibiotics to be discontinued. Continue to increase activity. Likely discharge in 24 hours. Verena Cheng, Objective - Vital Signs Vital signs: Vital Signs Temp 98.3 F 12/18/24 07:48 Pulse 75 12/18/24 07:48 Resp 18 12/18/24 07:48 BP 139/88 12/18/24 07:48 Pulse Ox 95 12/18/24 07:48 FiO2 Intake & Output 12/17/24 12/18/24 12/18/24 18:59 06:59 18:59 Intake Total 420 620 Balance 420 620 Intake: Oral 420 620 Other: # Voids 2 3 # Bowel Movements 2 1 - Labs CBC & Chem 7: 12/19/24 05:46 12/17/24 05:47
--- NOTE | 2024-12-19 02:13 | P.PN ---
Subjective Progress Note Date: 12/18/24 Reason for Consult Consult date: 12/14/24 Medical management status post colectomy for diverticulitis - History of Present Illness This is a very pleasant 74-year-old female who is admitted under general surgery services Dr. Cheng and is status post open sigmoid colectomy. Patient follows with Dr. Staci Wheat in the outpatient setting with past medical history of diverticulitis, kidney stones, osteoarthritis. Patient denies any alcohol, smoking or drug use. Patient has been following with Dr. Cheng in the outpatient setting for the surgical procedure. Patient's white count is mildly elevated above 20 likely reactive as patient does not appear infectious at all. Repeat labs ordered and will monitor closely. Internal medicine consulted for medical management. 12/15/2024 Patient is seen in follow-up today with no acute overnight issues noted. Patient currently standing up at the bedside as she continues with epidural and Stephenson catheter and has been standing up frequently doing walking in place exercises including using her incentive spirometer. Patient is continued on 1 to 2 L of oxygen via nasal cannula although she feels she does not need it and does not feel short of breath. Encouraged continued incentive spirometer use and will evaluate off O2. Patient continues with clear liquids and tolerating although continues to have not much of an appetite. Patient reports not passing gas and no bowel movement as of yet. 12/16/2024 Patient is seen in follow-up today. White count significantly improved and tren ding down at 11 and was 21 yesterday. Chest x-ray with concerns of atelectasis and strongly encouraged incentive spirometer. Patient has been using and has also been up at the bedside. Plan is to remove epidural today and will likely remove indwelling Stephenson catheter. Patient reports feels a lot of gurgling with no reported gas passing or bowel movement as of yet. Patient tolerating some clear liquids and will be advanced per surgery. Patient is afebrile with no reported chest pain or shortness of breath. Follow-up on repeat labs in the AM. 12/17/2024 Patient is seen in follow-up today and Stephenson catheter along with epidural was removed yesterday. Patient is up and voiding reports the passing some gas. Patient is continued on clear liquids and recommend to continue per surgery recommendations. Labs reviewed and within normal limits. Working on his incentive spirometer and maintaining oxygen saturation at 94% room air. Patient has been encouraged to take frequent walks as tolerated. 12/18/2024 Patient is seen in follow-up today and reports to feeling improved. Diet is being advanced per general surgery as patient is tolerating oral intake. Continues with not much of an appetite although is improving slowly. Patient has been up and walking multiple times and is maintained on room air denies any chest pain or shortness of breath. Patient is working on incentive spirometer and continued encouraged to do so at least 10 times every hour while awake. Patient is having bowel movements and passing gas. Review of systems: Constitutional: No reports of fatigue, fever, or chills Cardiovascular: No reports of chest pain or palpitations Respiratory: No reports of shortness of breath or cough GI: No reports of nausea, vomiting, or diarrhea, reports passing gas : No reports of dysuria or retention Neurovascular: No reports of weakness or numbness All medications have been reviewed The rest of the 14-point review of systems is negative. PHYSICAL EXAMINATION: GENERAL: The patient is alert and oriented x3. Well developed, thin built. Elderly appearing, thin built HEENT: Pupils are round and equally reacting to light. EOMI. No scleral icterus. No conjunctival pallor. Normocephalic, atraumatic. No pharyngeal erythema. No thyromegaly. CARDIOVASCULAR: S1 and S2 present. No murmurs, rubs, or gallops. PULMONARY: Diminished breath sounds bilaterally otherwise chest is clear to auscultation, no wheezing or crackles. ABDOMEN: Soft, mildly tender, nondistended, normoactive bowel sounds. No palpable organomegaly. MUSCULOSKELETAL: No joint swelling or deformity. EXTREMITIES: No cyanosis, clubbing, or pedal edema. NEUROLOGICAL: Gross neurological examination did not reveal any focal deficits. Diffusely weak SKIN: No rashes. Assessment: Status post open sigmoid colectomy for diverticulitis Leukocytosis, likely reactive, improved and normalized History of osteoarthritis History of kidney stones GI prophylaxis DVT prophylaxis Full code Plan: Patient admitted under surgery services status post open colectomy for diverticulitis. White count was elevated and likely reactive. Patient is afebrile and denies any shortness of breath cough, pain or burning, chest x-ray with some atelectasis. Patient was empirically started on antibiotics per surgery and will continue for now. White count is significantly improved and normalized and patient remains afebrile Patient had epidural pump and indwelling Stephenson catheter removed. Patient is voiding with no difficulties. Encouraged increase activity as tolerated with frequent walks Encourage incentive spirometer use at least 10 times every hour while awake We will continue to follow with general surgery during hospitalization The impression and plan of care has been dictated by Aydee Mehta, Nurse Practitioner as directed. Dr. Cyndi MD I have performed a history and examination and MDM of this patient, discussed the same with the dictator, and agree with the dictator's assessment and plan as written ,documented as a scribe. Based on total visit time, I have performed more than 50% of the visit. Objective - Vital Signs Vital signs: Vital Signs Temp 98.3 F 12/18/24 07:48 Pulse 75 12/18/24 07:48 Resp 18 12/18/24 07:48 BP 139/88 12/18/24 07:48 Pulse Ox 95 12/18/24 07:48 FiO2 Intake & Output 12/17/24 12/18/24 12/18/24 18:59 06:59 18:59 Intake Total 420 620 Balance 420 620 Intake: Oral 420 620 Other: # Voids 2 3 # Bowel Movements 2 1 - Labs CBC & Chem 7: 12/17/24 05:47 12/17/24 05:47 Labs: Abnormal Lab Results - Last 24 Hours (Table) 12/17/24 Range/Units 05:47 BUN 6.9 L (9.0-27.0) mg/dL BUN/Creatinine Ratio 8.62 L (12.00-20.00) Ratio
[2024-12-19 07:01] LABS: Basophils % (A) 0 %; Eosinophils # (A) 0.4 k/uL (0-0.7); Eosinophils % (A) 6 %; HCT 36.3 % (34.0-46.0); HGB 11.7 gm/dL (11.4-16.0); Lymphocytes # (A) 1.3 k/uL (1.0-4.8); Lymphocytes % (A) 22 %; MCH 29.3 pg (25.0-35.0); MCHC 32.1 g/dL (31.0-37.0); MCV 91.2 fL (80.0-100.0); Mean Platelet Volume 9.4; Monocytes # (A) 0.5 k/uL (0-1.0); Monocytes % (A) 9 %; Neutrophils # (A) 3.8 k/uL (1.3-7.7); Neutrophils % (A) 62 %; Platelet Count 243 k/uL (150-450); RBC 3.98 m/uL (3.80-5.40); RDW 13.7 % (11.5-15.5); WBC 6.1 k/uL (3.8-10.6)
[2024-12-19 08:18] VITALS: BP 136/86; PULSE 66; RESP 17; TEMP 98.1
--- NOTE | 2024-12-19 09:49 | P.DS ---
Providers Date of admission: 12/13/24 10:41 Expected date of discharge: 12/19/24 Attending physician: Verena Cheng DO Consults: 12/13/24 21:32 Consult Physician Routine Consulting Provider: Jordan Lockett Consult Reason/Comments: Med Mgmt Do you want consulting provider notified?: Yes Primary care physician: Gauri Wheat Hospital Course: Discharge diagnosis 1. Diverticulitis status post open sigmoid colectomy 2. Atelectasis 3. Leukocytosis improved Hospital course This is a 74-year-old female with a known history of diverticulitis she is status post open sigmoid colectomy. Patient tolerated surgery well. Her pain is controlled. She is tolerating diet. She has been up and ambulating she is having bowel movements. She is afebrile. She is stable for discharge. Please refer to chart for any further details. Physician Outboard Motor Assembler note has been reviewed by physician. Signing provider agrees with the documented findings, assessment, and plan of care. Patient Condition at Discharge: Stable Plan - Discharge Summary Discharge Rx Participant: No New Discharge Prescriptions: New HYDROcodone/APAP 5-325MG [Montgomery 5-325] 1 tab PO Q6HR PRN 3 Days #12 tab PRN Reason: Pain Continue Cholecalciferol (Vitamin D3) [Vitamin D3 (50 Mcg = 2000 Iu)] 150 mcg PO DAILY L.acidoph,Paracasei, B.lactis [Probiotic] 1 each PO DAILY Discharge Medication List Cholecalciferol (Vitamin D3) [Vitamin D3 (50 Mcg = 2000 Iu)] 150 mcg PO DAILY 12/06/24 [History] L.acidoph,Paracasei, B.lactis [Probiotic] 1 each PO DAILY 12/06/24 [History] HYDROcodone/APAP 5-325MG [Montgomery 5-325] 1 tab PO Q6HR PRN 3 Days #12 tab 12/19/24 [Rx] Follow up Appointment(s)/Referral(s): Verena Cheng DO [Doctor of Osteopathic Medicine] - 2 Weeks Activity/Diet/Wound Care/Special Instructions: No driving while taking Montgomery No lifting over 10 pounds Sponge bath over the next 2 to 3 days then you may shower. No soaking or tub baths for 2 weeks Very light activity until you are reevaluated at your follow up appointment with your surgeon Ok to take Tylenol and Motrin as needed for pain Don't take both Tylenol and Montgomery together Discharge Disposition: HOME SELF-CARE
--- NOTE | 2024-12-20 05:17 | P.PN ---
Subjective Progress Note Date: 12/19/24 Reason for Consult Consult date: 12/14/24 Medical management status post colectomy for diverticulitis - History of Present Illness This is a very pleasant 74-year-old female who is admitted under general surgery services Dr. Cheng and is status post open sigmoid colectomy. Patient follows with Dr. Staci Wheat in the outpatient setting with past medical history of diverticulitis, kidney stones, osteoarthritis. Patient denies any alcohol, smoking or drug use. Patient has been following with Dr. Cheng in the outpatient setting for the surgical procedure. Patient's white count is mildly elevated above 20 likely reactive as patient does not appear infectious at all. Repeat labs ordered and will monitor closely. Internal medicine consulted for medical management. 12/15/2024 Patient is seen in follow-up today with no acute overnight issues noted. Patient currently standing up at the bedside as she continues with epidural and Stephenson catheter and has been standing up frequently doing walking in place exercises including using her incentive spirometer. Patient is continued on 1 to 2 L of oxygen via nasal cannula although she feels she does not need it and does not feel short of breath. Encouraged continued incentive spirometer use and will evaluate off O2. Patient continues with clear liquids and tolerating although continues to have not much of an appetite. Patient reports not passing gas and no bowel movement as of yet. 12/16/2024 Patient is seen in follow-up today. White count significantly improved and tren ding down at 11 and was 21 yesterday. Chest x-ray with concerns of atelectasis and strongly encouraged incentive spirometer. Patient has been using and has also been up at the bedside. Plan is to remove epidural today and will likely remove indwelling Stephenson catheter. Patient reports feels a lot of gurgling with no reported gas passing or bowel movement as of yet. Patient tolerating some clear liquids and will be advanced per surgery. Patient is afebrile with no reported chest pain or shortness of breath. Follow-up on repeat labs in the AM. 12/17/2024 Patient is seen in follow-up today and Stephenson catheter along with epidural was removed yesterday. Patient is up and voiding reports the passing some gas. Patient is continued on clear liquids and recommend to continue per surgery recommendations. Labs reviewed and within normal limits. Working on his incentive spirometer and maintaining oxygen saturation at 94% room air. Patient has been encouraged to take frequent walks as tolerated. 12/18/2024 Patient is seen in follow-up today and reports to feeling improved. Diet is being advanced per general surgery as patient is tolerating oral intake. Continues with not much of an appetite although is improving slowly. Patient has been up and walking multiple times and is maintained on room air denies any chest pain or shortness of breath. Patient is working on incentive spirometer and continued encouraged to do so at least 10 times every hour while awake. Patient is having bowel movements and passing gas. 12/19/2024 Patient is seen in follow-up today doing well, patient is dressed and ready for discharge. Patient reports having bowel movements and passing gas and tolerat ing diet. Patient is afebrile with no reports of chest pain or shortness of breath. Patient has been up and walking the halls and reports will be going home to stay with family during recovery. Patient encouraged to bring incentive spirometer at home and continue using. Patient is medically stable once cleared by general surgery. Review of systems: Constitutional: No reports of fatigue, fever, or chills Cardiovascular: No reports of chest pain or palpitations Respiratory: No reports of shortness of breath or cough GI: No reports of nausea, vomiting, or diarrhea, reports passing gas and having bowel movements : No reports of dysuria or retention Neurovascular: No reports of weakness or numbness All medications have been reviewed The rest of the 14-point review of systems is negative. PHYSICAL EXAMINATION: GENERAL: The patient is alert and oriented x3. Well developed, thin built. Elderly appearing, thin built HEENT: Pupils are round and equally reacting to light. EOMI. No scleral icterus. No conjunctival pallor. Normocephalic, atraumatic. No pharyngeal erythema. No thyromegaly. CARDIOVASCULAR: S1 and S2 present. No murmurs, rubs, or gallops. PULMONARY: Diminished breath sounds bilaterally otherwise chest is clear to auscultation, no wheezing or crackles. ABDOMEN: Soft, mildly tender, nondistended, normoactive bowel sounds. No palpable organomegaly. MUSCULOSKELETAL: No joint swelling or deformity. EXTREMITIES: No cyanosis, clubbing, or pedal edema. NEUROLOGICAL: Gross neurological examination did not reveal any focal deficits. Steady gait SKIN: No rashes. Assessment: Status post open sigmoid colectomy for diverticulitis Leukocytosis, likely reactive, improved and normalized History of osteoarthritis History of kidney stones GI prophylaxis DVT prophylaxis Full code Plan: Patient admitted under surgery services status post open colectomy for diver ticulitis. White count was elevated and likely reactive. Patient is afebrile and denies any shortness of breath cough, pain or burning, chest x-ray with some atelectasis. Patient was empirically started on antibiotics per surgery and will continue for now. White count is significantly improved and normalized and patient remains afebrile Encouraged increase activity as tolerated with frequent walks Encourage incentive spirometer use at least 10 times every hour while awake Patient reports she is being discharged today per surgery. Patient is medically stable and has been instructed to follow-up with primary care provider as well. Thank you kindly for this consultation. We will continue to follow with general surgery during hospitalization The impression and plan of care has been dictated by Aydee Mehta, Nurse Practitioner as directed. Dr. Cyndi MD I have performed a history and examination and MDM of this patient, discussed the same with the dictator, and agree with the dictator's assessment and plan as written ,documented as a scribe. Based on total visit time, I have performed more than 50% of the visit. Objective - Vital Signs Vital signs: Vital Signs Temp 98.1 F 12/19/24 08:00 Pulse 66 12/19/24 08:00 Resp 17 12/19/24 08:00 BP 136/86 12/19/24 08:00 Pulse Ox 95 12/19/24 08:00 FiO2 Intake & Output 12/19/24 12/19/24 12/20/24 06:59 18:59 06:59 Intake Total 200 Balance 200 Intake: Oral 200 Other: # Voids 3 - Labs CBC & Chem 7: 12/19/24 05:46 12/17/24 05:47
--- NOTE | 2024-12-20 10:41 | P.OP ---
Date of Procedure: 12/13/24 Preoperative Diagnosis: History of diverticulitis with rupture Postoperative Diagnosis: History of diverticulitis with rupture Procedure(s) Performed: Laparoscopic converted to open sigmoid colectomy with primary anastomosis Flexible sigmoidoscopy Anesthesia: FIOR Surgeon: Verena Cheng Pathology: other (Sigmoid colon) Condition: stable Disposition: floor Indications for Procedure: 74-year-old female with history of multiple diverticulitis attacks along with abscess formation after rupture. She was treated with IV antibiotics and drainage with interventional radiology. Based on recurrent issues, patient has opted for sigmoid colectomy. Risks, benefits and alternatives were provided to the patient. All questions were answered prior to attending the operating suite. Operative Findings: Sigmoid colon adhered to left fallopian tube and left pelvic and abdominal wall Description of Procedure: Patient was brought to the operating room and placed in supine position on the operating table. Sedation was provided by anesthesia and the patient underwent endotracheal intubation. The patient was then placed in lithotomy position. Patient was prepped and draped in regular sterile fashion. Incision was made at Salcido's point and the abdomen was entered under direct visualization using a Visiport. Pneumoperitoneum was achieved and evaluation was made of the sigmoid colon after patient was placed in deep Trendelenburg. The sigmoid colon was noted to be adhered to the pelvic wall and left fallopian tube. On evaluation based on this dense adherence, decision was made that patient would benefit from open procedure. Midline incision was made and dissection was carried to the fascia. The fascia was incised along the length of the incision. The sigmoid colon was then clearly evaluated and previous rupture site was noted. Dissec tion was carried to carefully remove the sigmoid colon from its adherence to the fallopian tube along with the pelvic wall. Proximal and distal ends of the sigmoid colon were then noted for anticipated anastomosis. The sites did appear healthy without any significant disease process noted. Mesenteric defect was created and stapler was fired across proximal point of transection. LigaSure device was then used to free the sigmoid colon from the mesentery distally. Distal point of transection was decided on and stapler device was used to transect this portion as well. Based on redundancy of the colon, significant amount of colon remained to create a [id number] anastomosis. 2 colotomies were created and stapler device was fired to create the anastomosis. The resulting colotomy was then closed with a TX 60 blue load stapler. At this point endoscope was placed through the rectum and evaluation of the anastomosis was made. Patient did not had any evidence of leakage during this leak test with fluid provided in the pelvis and no bubbles seen. No bleeding was noted from the endoscopy as well. The air was then released and scope removed. At this point, irrigation was placed in the abdomen and suctioned and the abdominal incision was closed with looped PDS suture. Skin daren were applied. Patient was awakened in the operating suite and taken to postanesthesia care unit in stable condition.
== END 2024-12-19 11:40 | disposition home or self-care (01) | DRG 330 ==
LOC: 2ORMAIN 10:41 → EDSTATUS 12:30 → 4SSUR 15:52
PROVIDERS: ADMIT Surgery; ATTEND Surgery
PROC: 0DJD8ZZ Inspection of Lower Intestinal Tract, Via Natural or Artificial Opening Endoscopic (ICD-10-PCS; principal; 2024-12-13 12:45)
PROC: 0DBN0ZZ Excision of Sigmoid Colon, Open Approach (ICD-10-PCS; principal; 2024-12-13 12:45)
DX: K57.32 Diverticulitis of large intestine without perforation or abscess without bleeding (principal); J98.11 Atelectasis; D72.829 Elevated white blood cell count, unspecified; Z53.31 Laparoscopic surgical procedure converted to open procedure; Z88.2 Allergy status to sulfonamides; Z87.891 Personal history of nicotine dependence
CPT/HCPCS: 71045; 80048; 80053; 81001; 83735; 85025; 88307; 94760